=== PATIENT | male | born 1965 | race Caucasian/White ===

== ENCOUNTER 2022-11-07 20:20 | Emergency (ER) | payer BC, SELFPAY ==
[2022-11-07 20:33] VITALS: BP 166/84; PULSE 72; RESP 14; TEMP 36.7; O2SAT 98
--- NOTE | 2022-11-07 23:11 | ED.WOUNDLAC ---
HPI - Wound/Laceration General Chief Complaint: Wound/Laceration Stated Complaint: R leg lac Time Seen by Provider: 11/07/22 21:45 Source: patient Mode of arrival: ambulatory Limitations: no limitations History of Present Illness HPI narrative: Patient is a 56-year-old male who presents to the ED with report of a laceration to his right lower leg. Patient reports he was trying to open a glass jar in his pantry to get a granola bar out when the glass jar broke, and a piece of glass cut his right lower leg. Patient was unable to control bleeding at home which prompted his presentation. Denies any numbness or tingling. He has been ambulatory without issue. Denies significant pain. Tetanus up-to-date as of 2 years ago. Related Data Home Medications Medication Instructions Recorded Confirmed multivitamin 1 tablet PO DAILY 06/04/19 12/20/21 Allergies Allergy/AdvReac Type Severity Reaction Status Date / Time acetaminophen Allergy Intermediate HIVES Verified 12/20/21 13:00 propoxyphene Allergy Intermediate HIVES Verified 12/20/21 13:00 Review of Systems Review of Systems: CONSTITUTIONAL: Denies fever, chills, or sweats. SKIN: See HPI. MUSCULOSKELETAL: Denies back pain, joint pain, or myalgia. NEUROLOGIC: Denies tingling, numbness, or weakness. All systems reviewed & are unremarkable except as noted in HPI and below PMFSH Social History Social History Smoking status: Unknown if ever smoked Second hand tobacco smoke exposure: No Alcohol intake: current Drinks per week: 6 Exam Narrative: GENERAL: Well appearing, well-nourished, non-toxic, in no acute distress. HEAD: Normocephalic, atraumatic. NECK: Supple. No adenopathy, no masses. RESPIRATORY: Airway patent, respirations nonlabored. CARDIOVASCULAR: Regular rate and rhythm without murmurs, rubs, or gallops. Pedal pulses 2+ and equal bilaterally. MUSCULOSKELETAL: Moves all extremities. Strength/ROM intact without gross deformities. SKIN: Warm, dry, normal color. No rashes. 1.5 cm curvilinear flap laceration to right medial lower leg. Pinpoint area of active bleeding. No foreign body noted. NEURO: A&O X3. Speech clear. Cranial nerves II-XII grossly intact. Steady gait. No ataxic movements. PSYCHIATRIC: Appropriate mood and affect. Normal interaction. Course Vital Signs Vital signs: Vital Signs Temperature 98.0 F 11/07/22 20:33 Pulse Rate 72 11/07/22 20:33 Respiratory Rate 14 11/07/22 20:33 Blood Pressure 166/84 H 11/07/22 20:33 Pulse Oximetry 98 11/07/22 20:33 Temperature 98.0 F 11/07/22 20:33 Pulse Rate 72 11/07/22 20:33 Respiratory Rate 14 11/07/22 20:33 Blood Pressure 166/84 H 11/07/22 20:33 Pulse Oximetry 98 11/07/22 20:33 Procedures Laceration Laceration 1: Date: 11/07/22 Time: 23:00 Site: lower extremity Side (If applicable): right Size (cm): 1.5 Description: flap and clean Depth: simple, single layer Local Anesthetic: lidocaine 1% Amount of anesthesia used (mL): 3 Pre-repair: wound explored and irrigated ====== Skin Level ====== Skin layer closed with: nylon Size (cm): 4-0 Number of sutures: 3 Technique: simple, interrupted ====== Subcutaneous Layer ====== ====== Muscle Layer ====== ====== Tendon Layer ====== MDM - Wound/Laceration MDM Narrative Medical decision making narrative: Laceration repaired without complications. Tetanus already up-to-date. Patient given wound care instructions and reasons to return. Medical Records Attestation: I reviewed the patient's medical records. Discharge Plan Discharge Clinical Impression: Laceration of right lower leg Patient Disposition: Home, Self-Care Condition: Stable Instructions: Antibiotic Form, Care For Your Stitches (ED), Laceration (ED) Additional Instru
[2022-11-07] MEDS: LIDOCAINE HCL 1% LOCAL INJ 10 ML VIAL 5 ML INFILTRATE (23:14)
== END 2022-11-07 23:18 | disposition home or self-care (01) ==
PROVIDERS: Emergency Provider Physician Assistant
DX: S81.811A Laceration without foreign body, right lower leg, initial encounter (principal); W25.XXXA Contact with sharp glass, initial encounter
CPT/HCPCS: 12001; 99282

== ENCOUNTER 2023-08-28 08:12 | Outpatient (CLI) | payer OTHER, SELFPAY ==
--- NOTE | ~2023-08-28 | XR_ITS ---
EXAMINATION: XR cervical spine 4-5V DATE: 08/28/2023 08:39 INDICATION: Cervical radiculopathy. Right neck and shoulder pain. TECHNIQUE: 5 views of cervical spine including flexion and extension views were obtained. COMPARISON: None. FINDINGS: There is hypolordosis of cervical spine. There is no abnormal motion on flexion or extensio n. Vertebral body heights are normal. There is moderately decreased disc height at C5-C6. There is mu ltilevel mild facet joint osteoarthritis. There is mild central canal stenosis at C5-C6. No preverteb ral soft tissue swelling. IMPRESSION: 1. Moderate spondylosis at C5-C6. Reviewed, dictated and finalized at location E.
--- NOTE | ~2023-08-28 | XR_ITS ---
EXAMINATION: XR knee RT 3V DATE: 08/28/2023 08:39 INDICATION: Right knee pain. TECHNIQUE: 3 views of right knee including standing views were obtained. COMPARISON: None. FINDINGS: Bone alignment is normal. No fracture. There is mild tricompartmental osteoarthritis. There is a small knee joint effusion. IMPRESSION: 1. Mild right knee osteoarthritis. 2. Small right knee joint effusion. Reviewed, dictated and finalized at location E.
== END 2023-08-28 08:13 ==
PROVIDERS: PCP Internal Medicine; Visit Provider Internal Medicine
DX: M43.02 Spondylolysis, cervical region (principal); M17.11 Unilateral primary osteoarthritis, right knee; M25.461 Effusion, right knee
CPT/HCPCS: 72050; 73562

== ENCOUNTER 2023-12-21 15:30 | Outpatient (RCR) | payer OTHER, SELFPAY ==
--- NOTE | 2023-10-19 13:32 | OPREHPOC ---
Outpatient Therapy Plan of Care This is a Multidisciplinary Plan of Care that may contain components documented by all disciplines (PT, OT, and ST.) PT Problem 1 PT Problem #1 Knowledge Deficit PT Goal 1 Goal *indep with HEP *demonstrate correct posture with exercises * pt voice correct work station set up and positioning Target Visit 8 PT Problem 2 PT Problem #2 Pain PT Goal 1 Goal 1* pt report pain rating at 1/10 at worst 2* pt self assessment with Neck Disability Index rating of 8% limitation in activity level PT Problem 3 PT Problem #3 Impaired Strength PT Goal 1 Goal increase cervical-thoracic- scapular strength to improve posture and stability: 1* pt perform R and L prone scapular retraction with UE overhead x 20 reps with good stability 2* pt perform R shoulder flexion, with 5# hand weight to 90' without any report of weakness of shoulder 3* pt maintain good posture/stability with exercises Target Visit 8
--- NOTE | 2023-10-19 13:32 | PTOPEVAL1 ---
Assessment and note entered by Janell Gomez, PT Evaluation Information Assessment Status Evaluation ICD-10 Condition Codes (PT) M54.13 Onset Dec 2022 Subjective Information gradual increase in pain last fall; no injury or trauma to neck or shoulders; R hand dominant; Activity: able to do all home and work tasks-- computer work, with some pain increase; sometimes sit for 2 hours at time; does not do any regular fitness exercise, but does some walking; Reported Pain Level Pain Score Self Report Additional Pain Score Comments pain range in the past week: 2-3/10; ache, pinching feeling on R side; most pain R side-- neck and upper traps; never goes away; no radicular pain into shoulder or UE; increase pain: not able to identify any activity decreased pain: stretch neck/shoulder, rub neck; sleeping OK, no pain meds; problems with reaching out with R arm to leaf size picker something heavy Assessment PT Clinical Summary Kenny has the diagnosis of cervical radiculopathy. Gradual increase in pain without any trauma. Xray report states multilevel mild facet joint OA and decreased disc height at C 5-6. He is able to perform all of his work and home tasks with increase pain. Self rating of Neck Disability Index of 14% limitation in activity. With the evaluation: he has rounded shoulder position with winging of scapula R >L, with weakness over scapular-thoracic area; minimal muscle tightness over upper cervical area; with cervical rotation R and L reports neck tightness and stiffness. Skilled PT services are indicated for modalities to decrease pain and sapsms, therapeutic exercises to stretch and strengthen cervical-thoracic- scapular complex, to improve posture and education for HEP and posture correction. Plan of Care Interventions Electrical Stimulation,Hot Pack/Cold Pack,Manual Therapy,Mechanical Traction,Neuro Re-education, Patient Education,Therapeutic Activities, Therapeutic Exercise,Ultrasound,Other Other Interventions CHRIS castillo
--- NOTE | 2023-12-21 16:05 | PTOPDC ---
Assessment and note entered by Janell Gomez, PT Discharge Report Assessment Status Discharge ICD-10 Condition Codes (PT) M54.13 Onset Dec 2022 Subjective Information doing good; ready to be finished with therapy; have stiffness in neck but no pain; heat and the exercises take care of the pain; doing everything at home and work without any troubles; doing the exercises at home with blue theraband Reported Pain Level Pain Score Self Report Additional Pain Score Comments not had any pain in the past week; Assessment PT Clinical Summary Kenny has received 8 PT sessions. Compared to the initial evaluation: now does not have any pain; Neck Disability Index self rating from 14% to 0% limitation in activity level; increase strength of cervical thoracic musculature indep with HEP and has good posture awareness with exercises and computer set up. The goals were achieved. Discharge PT services. He is to continue with the HEP and monitor posture. Plan of Care PT Services Indicated No
== END 2023-12-22 09:35 | disposition home or self-care (01) ==
LOC: ANHPT 15:30
PROVIDERS: PCP Internal Medicine; Visit Provider Internal Medicine
DX: M54.12 Radiculopathy, cervical region (principal)
CPT/HCPCS: 97110; 97140; 97161; 97530

== ENCOUNTER 2025-01-22 20:05 | Inpatient (IN) | payer OTHER, SELFPAY ==
[2025-01-22] VITALS (19 sets, daily range): BP systolic 124–148; BP diastolic 69–85; PULSE 80–89; RESP 18–25; TEMP 36.3; O2SAT 97–100
--- NOTE | ~2025-01-22 | CT_ITS ---
EXAM/PROCEDURE: CT abdomen pelvis w con HISTORY: Follow up drainage of pelvic abscess. COMPARISON: January 23 TECHNIQUE: IV contrast enhanced CT of abdomen and pelvis FINDINGS: Percutaneous pigtail catheter extends through the midline in the suprapubic region into fluid accumulation/abscess seen on the January 23 procedure. No pneumoperitoneum is seen in this area or throughout the abdomen/pelvis; there is a small hiatal hernia and a 2 x 1.8 x 1.1 cm gaseous accumulation along the left anterolateral margin of the hiatal hernia is noted. Small amount of residual fluid is present in the area of the abscess drain. No other abscess seen. Several loops of adjacent small bowel have mild wall thickening. No pneumatosis seen. Some of the loops of small bowel are borderline distended in the left upper quadrant image 52 series 3. 2 cm peripherally enhancing lesion along the posterior dome of the liver image 35 series 3 has interrupted peripheral enhancement probably representing a small hemangioma. The remainder of the liver adrenal glands kidneys spleen pancreas and stomach unremarkable. Lung bases clear. Heart size normal. Coronary calcifications. Diffuse degenerative changes throughout the bones. Tiny fat-containing umbilical hernia. Urinary bladder is nondistended but appears grossly normal. Prostate size normal. No AAA, hydroureteronephrosis or grossly inflamed appendix. Gallbladder appears within normal limits. Small hydroceles also incidentally noted along with small fat-containing inguinal hernias. IMPRESSION: 1. Percutaneous pigtail catheter in the mid pelvis with small amount of residual fluid; no new abscess seen. Small bowel findings likely associated with inflammatory/infectious process. 2. 2 cm air accumulation along the left anterolateral margin of small hiatal hernia does not appear to represent pneumoperitoneum and may represent small distal esophageal diverticulum. Reviewed, dictated and finalized at location A. ICE CONTROL OPERATOR IMPRESSION: 1. Percutaneous pigtail catheter in the mid pelvis with small amount of residua l fluid; no new abscess seen. Small bowel findings likely associated with infla mmatory/infectious process. 2. 2 cm air accumulation along the left anterolateral margin of small hiatal he rnia does not appear to represent pneumoperitoneum and may represent small dist al esophageal diverticulum.
--- NOTE | ~2025-01-22 | CT_ITS ---
EXAMINATION: CT guide absc cath placement DATE: 01/23/2025 12:13 INDICATION: Perforated diverticulitis with abscess TECHNIQUE: The procedure including the risks and benefits was discussed with the patient. Risks discussed included bleeding and infection. The patient understood the risks and benefits and agreed to proceed. The patient was confirmed to be receiving appropriate antibiotic coverage. The skin overlying the abdomen was prepped and draped in usual sterile fashion. Anesthetic was administered with 1% lidocaine subcutaneously. Utilizing CT guidance an 18-gauge trochar needle was inserted into the peritoneal fluid collection. The inner stylette was removed and a J-wire advanced into the fluid collection with position confirmed by CT. Needle was removed and utilizing Seldinger technique the tract was se rially dilated over the wire to 10Fr. A 10 Fr pigtail catheter was then placed and the loop formed and locked with position confirmed by CT. The catheter was stitched to the skin with suture. Antibiotic ointment and a sterile dressing were applied. An additional adhesive fixation device was applied. The catheter was then attached to suction drainage and was draining additional fluid at the conclusion of the procedure. The dose-length product was 149.33 mGy-cm. FINDINGS: CT images demonstrate the catheter within the anterior pelvic intraperitoneal fluid collection. 25 mL of opaque fowl smelling and purulent appearing demarco-colored fluid was aspirated for testing. IMPRESSION: 1. Successful CT-guided pelvic abscess drainage. 2. 25 mL fluid was sent for aerobic and anaerobic cultures. 3. The catheter will be managed by Dr. Vargas. Reviewed, dictated and finalized at location A. TY EQUIPMENT TESTING SPECIALIST
--- OUTSIDE RECORDS SUMMARY | 2025-01-22 20:07 | XMS_ITS | Data Portability ---
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 Not available 07/07/2022 15:48:48 08/10/2022 08/10/2022 Recommends healthy nutrition, including a diet rich in fruits and vegetables, minimizing simple carbohydrates, salt, and saturated fats. Encouraged regular cardiovascular exercise such as walking at least 30 minutes daily, 5 times per week. -- transferred care from Dr Candy Silva [facility] Not available 08/10/2022 18:53:27 08/24/2023 08/24/2023 Recommends healthy nutrition, including a diet rich in fruits and vegetables, minimizing simple carbohydrates, salt, and saturated fats. Encouraged regular cardiovascular exercise such as walking at least 30 minutes daily, 5 times per week. -- transferred care from Dr Candy Silva [facility] Not available 08/24/2023 10:51:49 02/22/2024 02/22/2024 Recommends healthy nutrition, including a diet rich in fruits and vegetables, minimizing simple carbohydrates, salt, and saturated fats. Encouraged regular cardiovascular exercise such as walking at least 30 minutes daily, 5 times per week. -- [facility] Not available 02/22/2024 12:29:09 09/06/2024 09/06/2024 Recommends healthy nutrition, including a diet rich in fruits and vegetables, minimizing simple carbohydrates, salt, and saturated fats. Encouraged regular cardiovascular exercise such as walking at least 30 minutes daily, 5 times per week. [email or web address] Not available 09/06/2024 10:23:25 Plan of Treatment Reminders Order Date Submit Date Provider Last Modified By Organization Details Last Modified Time Details Appointments ESTABLISH ED PATIENT 15 2025 08:30A M Gabino Melvin MD Not available Not available Not available Lab HbA1c (hemoglob in A1c), blood 2024 025 DION Steele, [address], [place], [address], 09/21/2024 03:35:52 PSA, total, serum or plasma [address] [facility] Cedric, [address], [place], [address], 09/06/2024 10:37:22 PSA, total, serum or plasma 2023 025 DION Steele, [address], [place], [address], 08/27/2024 03:04:58 microalbu min/creat inine, mass ratio, urine 2023 025 DION Steele, [address], [place], [address], 08/27/2024 03:04:58 lipid panel, serum 2023 025 DION Steele, [address], [place], [address], 08/27/2024 03:04:57 CMP, serum or plasma 2023 025 DION Steele [address], [place], [address], 08/27/2024 03:04:58 lipid panel, serum 2023 024 DION Steele [address], [place], [address], 02/03/2024 08:37:36 CMP, serum or plasma 2023 024 [facility], [address], [place], [address], 02/03/2024 08:37:35 PSA, total, serum or plasma 2023 024 [facility], [address], [place], [address], 08/29/2023 12:37:01 microalbu min/creat inine, mass ratio, urine 2023 024 [facility], [address], [place], [address], 02/03/2024 08:37:37 microalbu min/creat inine, mass ratio, urine 2022 023 [facility], [address], [place], [address], 08/15/2022 07:42:19 HbA1c (hemoglob in A1c), blood 2022 023 [facility], [address], [place], [address], 08/15/2022 07:42:19 Hepatitis C IgG Ab, qual, serum 2022 023 [facility], [address], [place], [address], 08/15/2022 07:42:20 HIV 1 + 2, meaningfu l use set 2022 023 [facility], [address], [place], [address], 08/15/2022 07:42:20 Referral dermatolo gist referral - -- for alexandroune f/u [facility], [address], [address], [place], [address], 09/06/2024 10:58:39 physical therapist referral - -- evaluate for possible injury to long thoracic nerve vs dorsal scapular nerve, vs spinal accessory nerve. Thanks. 2023 [facility] ([facility]), [address], [place], [address], 10/19/2023 19:25:31 Procedures None recorded. Surgeries None recorded. Imaging XR, cervical spine 2023 [facility], [address], [place], [address], 08/28/2023 13:39:07 XR, knee, 3 view 2023 024 [facility], [address], [place], [address], 08/31/2023 08:36:52 Medication Orders rosuvasta tin 5 mg tablet 2024 025 [email or web address], [address] [place] [address], [id number], 09/06/2024 10:37:25 amlodipin e 5 mg tablet 2024 025 [email or web address], [address] [place] [address], [place], [address], 09/06/2024 10:37:27 candesart an 32 mg tablet 2024 025 [email or web address], [address] [place] [address], [address], 09/06/2024 10:37:25 amlodipin e 5 mg tablet 2023 024 [email or web address], [address] [place] [address], [id number], 02/22/2024 12:32:29 candesart an 32 mg tablet 2023 [facility], [address] [place] [address], [id number], 02/22/2024 12:32:27 rosuvasta tin 5 mg tablet 2023 [facility], [address] [place] [address], [address], 02/22/2024 12:32:27 Medrol (Eliazar) 4 mg tablets in a dose pack 2023 [email or web address], [address] [place] [address], [id number], 02/22/2024 12:21:56 Patient TargetsNo targets recorded. Patient Instructions Encounter Date Encounter Id Patient Instructions Last Modified By Organization Details Last Modified Time 07/07/2022 [id number] advised to lose weight Not available 07/07/2022 15:48:46 08/10/2022 [id number] advised to lose weight Not available 08/10/2022 19:09:21 Discussed and explained advance directives such as standard forms to the . Face to face discussion lasted for a duration of ___ minutes. Not available 08/10/2022 18:45:41 08/24/2023 [id number] advised to lose weight Not available 08/24/2023 11:02:17 Discussed and explained advance directives such as standard forms to the . Face to face discussion lasted for a duration of ___ minutes. [email or web address] Not available 08/24/2023 09:53:23 02/22/2024 [id number] advised to lose weight Not available 02/22/2024 12:32:24 09/06/2024 [id number] advised to lose weight Not available 09/06/2024 10:37:22 Reason for Referral Physical Therapist Referral for Cervical radiculopathy -- evaluate for possible injury to long thoracic nerve vs dorsal scapular nerve, vs spinal accessory nerve. Thanks. Referring Physician: Gabino Melvin, Internal Medicine, Encounter Date: 08/24/2023 Raw Mill Operator Referral for M elanocytic nevus of skin -- for routiune f/u Referring Physician: Gabino Melvin, Internal Medicine, Encounter Date: 09/06/2024 Results Created Date Observation Date Name Description Value Unit Range Abnormal Flag Note LastModifiedBy Organization Detail LastModifiedTime 07/30/19 23 07/30/2022 ALBUM IN/CR EAT RATIO , RANDO M UR creatinine, urine 273.0 mg/dL not estab. Not Available [facility] ([facility]) [address] [place], [address], 07/30/2022 07:37:32 07/30/19 23 07/30/2022 ALBUM IN/CR EAT RATIO , RANDO M UR albumin, urine 6.0 ug/mL not estab. Not Available [facility] ([facility]) [address] [place], [address], 07/30/2022 07:37:32 07/30/19 23 07/30/2022 ALBUM IN/CR EAT RATIO , RANDO M UR alb/creat ratio 2 mg/g_ creat 0-29 Venita l: 0 - 29 Moder ately incre ased: 30 - 300 Sever aileen incre ased: >300 Not Available [facility] ([facility]) [address] [place], [address], 07/30/2022 07:37:32 07/30/19 23 07/30/2022 HEMOG LOBIN A1C hemoglobin A1C 5.9 % 4.8-5. 6 above high normal Predi abete s: 5.7 - 6.4 Diabe allison: >6.4 Glyce carlota contr ol for adult s with diabe allison: <7.0 Not Available [facility] ([facility]) [address] [place], [address], 07/30/2022 07:37:33 07/30/19 23 07/30/2022 HIV AB/P2 4 AG WITH REFLE X HIV Ab/P24 Ag screen Non Reacti ve non reacti ve HIV Negat rosie HIV-1 /HIV- 2 antib odies and HIV-1 p24 antig en were NOT detec clarice. There is no labor atory evide nce of HIV infec tion. Not Available [facility] ([facility]) [address] [facility], [place], [address], 07/30/2022 07:37:33 07/30/19 23 07/30/2022 HCV ANTIB JACKIE hep C virus Ab Non Reacti ve non reacti ve HCV antib jackie alone does not diffe renti ate betwe en previ ously resol guilherme infec tion and activ e infec tion. Equiv ocal and React rosie HCV antib jackie resul ts shoul d be follo wed up with an HCV RNA test to suppo rt the diagn osis of activ e HCV infec tion. Not Available [facility] ([facility]) [address] [facility], [place], [address], 07/30/2022 07:37:33 07/27/19 24 07/28/2023 COMP. METAB OLIC PANEL (14) glucose 92 mg/dL 70-99 Not Available [facility] ([facility]) [address] [place], [address], 07/28/2023 08:38:18 07/27/19 24 07/28/2023 COMP. METAB OLIC PANEL (14) BUN 17 mg/dL 6-24 Not Available [facility] ([facility]) [address] [place], [address], 07/28/2023 08:38:18 07/27/19 24 07/28/2023 COMP. METAB OLIC PANEL (14) creatinine 1.19 mg/dL 0.76-1 .27 Not Available [facility] ([facility]) [address] [place], [address], 07/28/2023 08:38:18 07/27/19 24 07/28/2023 COMP. METAB OLIC PANEL (14) eGFR 71 mL/mi n/1.7 3 >59 Not Available [facility] ([facility]) [address], [place], [address], 07/28/2023 08:38:18 07/27/19 24 07/28/2023 COMP. METAB OLIC PANEL (14) BUN/creatini ne ratio 14 9-20 Not Available [facility] ([facility]) [address], [place], [address], 07/28/2023 08:38:18 07/27/19 24 07/28/2023 COMP. METAB OLIC PANEL (14) sodium 137 mmol/ L 134-14 4 Not Available [facility] ([facility]) [address], [place], [address], 07/28/2023 08:38:18 07/27/19 24 07/28/2023 COMP. METAB OLIC PANEL (14) potassium 4.6 mmol/ L 3.5-5. 2 Not Available [facility] ([facility]) [address], [place], [address], 07/28/2023 08:38:18 07/27/19 24 07/28/2023 COMP. METAB OLIC PANEL (14) chloride 100 mmol/ L 96-106 Not Available [facility] ([facility]) [address], [place], [address], 07/28/2023 08:38:18 07/27/19 24 07/28/2023 COMP. METAB OLIC PANEL (14) carbon dioxide, total 25 mmol/ L 20-29 Not Available [facility] ([facility]) [address], [place], [address], 07/28/2023 08:38:18 07/27/19 24 07/28/2023 COMP. METAB OLIC PANEL (14) calcium 9.6 mg/dL 8.7-10 .2 Not Available [facility] ([facility]) [address] [facility] [place], [address], 07/28/2023 08:38:18 07/27/19 24 07/28/2023 COMP. METAB OLIC PANEL (14) protein, total 6.8 g/dL 6.0-8. 5 Not Available [facility] ([facility]) [address] [facility], [place], [address], 07/28/2023 08:38:18 07/27/19 24 07/28/2023 COMP. METAB OLIC PANEL (14) albumin 4.5 g/dL 3.8-4. 9 Not Available [facility] ([facility]) [address] [facility], [place], [address], 07/28/2023 08:38:18 07/27/19 24 07/28/2023 COMP. METAB OLIC PANEL (14) globulin, total 2.3 g/dL 1.5-4. 5 Not Available [facility] ([facility]) [address] [facility] [place], [address], 07/28/2023 08:38:18 07/27/19 24 07/28/2023 COMP. METAB OLIC PANEL (14) A/G ratio 2.0 1.2-2. 2 Not Available [facility] ([facility]) [address] [facility] [place], [address], 07/28/2023 08:38:18 07/27/19 24 07/28/2023 COMP. METAB OLIC PANEL (14) bilirubin, total 1.2 mg/dL 0.0-1. 2 Not Available [facility] ([facility]) [address] [facility] [place], [address], 07/28/2023 08:38:18 07/27/19 24 07/28/2023 COMP. METAB OLIC PANEL (14) alkaline phosphatase 41 IU/L 44-121 below low normal Not Available [facility] ([facility]) [address] [facility] [place], [address], 07/28/2023 08:38:18 07/27/19 24 07/28/2023 COMP. METAB OLIC PANEL (14) AST (SGOT) 29 IU/L 0-40 Not Available [facility] ([facility]) [address] [facility] [place], [address], 07/28/2023 08:38:18 07/27/19 24 07/28/2023 COMP. METAB OLIC PANEL (14) ALT (SGPT) 38 IU/L 0-44 Not Available [facility] ([facility]) [address] [facility] [place], [address], 07/28/2023 08:38:18 07/27/19 24 07/28/2023 LIPID PANEL cholesterol, total 160 mg/dL 100-19 9 Not Available [facility] ([facility]) [address] [facility] [place], [address], 07/28/2023 08:38:19 07/27/19 24 07/28/2023 LIPID PANEL triglyceride s 57 mg/dL 0-149 Not Available [facility] ([facility]) [address] [facility] [place], [address], 07/28/2023 08:38:19 07/27/19 24 07/28/2023 LIPID PANEL HDL cholesterol 65 mg/dL >39 Not Available [facility] ([facility]) [address] [facility] [place], [address], 07/28/2023 08:38:19 07/27/19 24 07/28/2023 LIPID PANEL VLDL cholesterol oleksandr 12 mg/dL 5-40 Not Available [facility] ([facility]) [address] [facility] [place], [address], 07/28/2023 08:38:19 07/27/19 24 07/28/2023 LIPID PANEL LDL chol calc ([facility]) 83 mg/dL 0-99 Not Available [facility] ([facility]) [address] [place], [address], 07/28/2023 08:38:19 07/27/19 24 07/28/2023 LIPID PANEL comment: SENIOR ENERGY MARKET COORDINATOR Not Available [facility] ([facility]) [address] [facility], [place], [address], 07/28/2023 08:38:19 07/27/19 24 07/28/2023 ALBUM IN/CR EAT RATIO , RANDO M UR creatinine, urine 241.5 mg/dL not estab. Not Available [facility] ([facility]) [address] [facility], [place], [address], 07/28/2023 08:38:20 07/27/19 24 07/28/2023 ALBUM IN/CR EAT RATIO , RANDO M UR albumin, urine 8.5 ug/mL not estab. Not Available [facility] ([facility]) [address] [place], [address], 07/28/2023 08:38:20 07/27/19 24 07/28/2023 ALBUM IN/CR EAT RATIO , RANDO M UR alb/creat ratio 4 mg/g_ creat 0-29 Venita l: 0 - 29 Moder ately incre ased: 30 - 300 Sever aileen incre ased: >300 Not Available [facility] ([facility]) [address] [facility], [place], [address], 07/28/2023 08:38:20 07/27/19 24 07/28/2023 HEMOG LOBIN A1C hemoglobin A1C 5.8 % 4.8-5. 6 above high normal Predi abete s: 5.7 - 6.4 Diabe allison: >6.4 Glyce carlota contr ol for adult s with diabe allison: <7.0 Not Available [facility] ([facility]) [address] [place], [address], 07/28/2023 08:38:21 08/28/19 24 08/29/2023 PROST ATE-S PECIF IC AG prostate specific Ag 1.6 NG/mL 0.0-4. 0 Jil ECLIA metho dolog y. Accor ding to the Ameri can [employer]o g[employer] iatio n, Serum PSA shoul d decre ase and remai n at undet ectab le level s after radic al prost atect jhonatan. The AUA defin es bioch emica l recur rence as an initi al PSA value 0.2 ng/mL or great er follo wed by a subse quent confi rmato ry PSA value 0.2 ng/mL or great er. Value s obtai theo with diffe rent assay metho ds or kits canno t be used inter sanford eably . Resul ts canno t be inter prete d as absol mi'kmaq evide nce of the prese nce or absen ce of michell harrell se. Not Available [facility] ([facility]) [address] [facility], [place], [address], 08/29/2023 12:37:01 02/02/20 24 02/03/2024 COMP. METAB OLIC PANEL (14) glucose 94 mg/dL 70-99 normal Not Available [facility] ([facility]) [address] [place], [address], 02/03/2024 08:37:35 02/02/20 24 02/03/2024 COMP. METAB OLIC PANEL (14) BUN 13 mg/dL 6-24 normal Not Available [facility] ([facility]) [address] [place], [address], 02/03/2024 08:37:35 02/02/20 24 02/03/2024 COMP. METAB OLIC PANEL (14) creatinine 1.10 mg/dL 0.76-1 .27 normal Not Available [facility] ([facility]) [address] [place], [address], 02/03/2024 08:37:35 02/02/20 24 02/03/2024 COMP. METAB OLIC PANEL (14) eGFR 78 mL/mi n/1.7 3 >59 normal Not Available [facility] ([facility]) [address] [facility], [place], [address], 02/03/2024 08:37:35 02/02/20 24 02/03/2024 COMP. METAB OLIC PANEL (14) BUN/creatini ne ratio 12 9-20 normal Not Available [facility] ([facility]) [address] [facility], [place], [address], 02/03/2024 08:37:35 02/02/20 24 02/03/2024 COMP. METAB OLIC PANEL (14) sodium 140 mmol/ L 134-14 4 normal Not Available [facility] ([facility]) [address] [facility], [place], [address], 02/03/2024 08:37:35 02/02/20 24 02/03/2024 COMP. METAB OLIC PANEL (14) potassium 4.4 mmol/ L 3.5-5. 2 normal Not Available [facility] ([facility]) [address] [facility], [place], [address], 02/03/2024 08:37:35 02/02/20 24 02/03/2024 COMP. METAB OLIC PANEL (14) chloride 103 mmol/ L 96-106 normal Not Available [facility] ([facility]) [address] [facility], [place], [address], 02/03/2024 08:37:35 02/02/20 24 02/03/2024 COMP. METAB OLIC PANEL (14) carbon dioxide, total 25 mmol/ L 20-29 normal Not Available [facility] ([facility]) [address] [facility], [place], [address], 02/03/2024 08:37:35 02/02/20 24 02/03/2024 COMP. METAB OLIC PANEL (14) calcium 9.3 mg/dL 8.7-10 .2 normal Not Available [facility] ([facility]) [address] [facility] [place], [address], 02/03/2024 08:37:35 02/02/20 24 02/03/2024 COMP. METAB OLIC PANEL (14) protein, total 6.8 g/dL 6.0-8. 5 normal Not Available [facility] ([facility]) [address] [facility] [place], [address], 02/03/2024 08:37:35 02/02/20 24 02/03/2024 COMP. METAB OLIC PANEL (14) albumin 4.4 g/dL 3.8-4. 9 normal Not Available [facility] ([facility]) [address] [facility], [address], 02/03/2024 08:37:35 02/02/20 24 02/03/2024 COMP. METAB OLIC PANEL (14) globulin, total 2.4 g/dL 1.5-4. 5 Not Available [facility] ([facility]) [address] [facility] [place], [address], 02/03/2024 08:37:35 02/02/20 24 02/03/2024 COMP. METAB OLIC PANEL (14) bilirubin, total 1.2 mg/dL 0.0-1. 2 normal Not Available [facility] ([facility]) [address] [facility] [place], [address], 02/03/2024 08:37:35 02/02/20 24 02/03/2024 COMP. METAB OLIC PANEL (14) alkaline phosphatase 40 IU/L 44-121 below low normal Not Available [facility] ([facility]) [address] [facility] [place], [address], 02/03/2024 08:37:35 02/02/20 24 02/03/2024 COMP. METAB OLIC PANEL (14) AST (SGOT) 23 IU/L 0-40 normal Not Available [facility] ([facility]) [address] [facility], [address], 02/03/2024 08:37:35 02/02/20 24 02/03/2024 COMP. METAB OLIC PANEL (14) ALT (SGPT) 31 IU/L 0-44 normal Not Available [facility] ([facility]) [address] [facility], [place], [address], 02/03/2024 08:37:35 02/02/20 24 02/03/2024 LIPID PANEL cholesterol, total 149 mg/dL 100-19 9 normal Not Available [facility] ([facility]) [address] [place], [address], 02/03/2024 08:37:36 02/02/20 24 02/03/2024 LIPID PANEL triglyceride s 49 mg/dL 0-149 normal Not Available [facility] ([facility]) [address] [place], [address], 02/03/2024 08:37:36 02/02/20 24 02/03/2024 LIPID PANEL HDL cholesterol 58 mg/dL >39 normal Not Available [facility] ([facility]) [address] [place], [address], 02/03/2024 08:37:36 02/02/20 24 02/03/2024 LIPID PANEL VLDL cholesterol oleksandr 11 mg/dL 5-40 Not Available [facility] ([facility]) [address] [place], [address], 02/03/2024 08:37:36 02/02/20 24 02/03/2024 LIPID PANEL LDL chol calc ([facility]) 80 mg/dL 0-99 Not Available [facility] ([facility]) [address] [place], [address], 02/03/2024 08:37:36 02/02/20 24 02/03/2024 LIPID PANEL LDL calc comment: SENIOR ENERGY MARKET COORDINATOR Not Available [facility] ([facility]) [address] [place], [address], 02/03/2024 08:37:36 02/02/20 24 02/03/2024 ALBUM IN/CR EAT RATIO , RANDO M UR creatinine, urine 13.8 mg/dL not estab. normal Not Available [facility] ([facility]) [address] [place], [address], 02/03/2024 08:37:37 02/02/2002/03/2024 ALBUM IN/CR EAT RATIO , RANDO M UR albumin, urine <3.0 ug/mL not estab. Not Available [facility] ([facility]) [address] [place], [address], 02/03/2024 08:37:37 02/02/20 24 02/03/2024 ALBUM IN/CR EAT RATIO , RANDO M UR alb/creat ratio <22 mg/g_ creat 0-29 Venita l: 0 - 29 Moder ately incre ased: 30 - 300 Sever aileen incre ased: >300 Not Available [facility] ([facility]) [address] [place], [address], 02/03/2024 08:37:37 08/23/1908/23/2024 COMP. METAB OLIC PANEL (14) glucose 107 mg/dL 70-99 above high normal Not Available [facility] ([facility]) [address] [place], [address], 08/23/2024 04:36:14 08/23/19 25 08/23/2024 COMP. METAB OLIC PANEL (14) BUN 17 mg/dL 6-24 normal Not Available [facility] ([facility]) [address] [place], [address], 08/23/2024 04:36:14 06/12/20 25 08/23/2024 COMP. METAB OLIC PANEL (14) creatinine 1.16 mg/dL 0.76-1 .27 normal Not Available [facility] ([facility]) [address] [facility], [place], [address], 08/23/2024 04:36:14 08/23/19 25 08/23/2024 COMP. METAB OLIC PANEL (14) eGFR 73 mL/mi n/1.7 3 >59 normal Not Available [facility] ([facility]) [address] [facility], [place], [address], 08/23/2024 04:36:14 08/23/19 25 08/23/2024 COMP. METAB OLIC PANEL (14) BUN/creatini ne ratio 15 9-20 normal Not Available [facility] ([facility]) [address] [facility], [place], [address], 08/23/2024 04:36:14 08/23/19 25 08/23/2024 COMP. METAB OLIC PANEL (14) sodium 137 mmol/ L 134-14 4 normal Not Available [facility] ([facility]) [address] [facility] [place], [address], 08/23/2024 04:36:14 08/23/19 25 08/23/2024 COMP. METAB OLIC PANEL (14) potassium 4.6 mmol/ L 3.5-5. 2 normal Not Available [facility] ([facility]) [address] [facility], [place], [address], 08/23/2024 04:36:14 08/23/19 25 08/23/2024 COMP. METAB OLIC PANEL (14) chloride 101 mmol/ L 96-106 normal Not Available [facility] ([facility]) [address] [facility], [place], [address], 08/23/2024 04:36:14 08/23/19 25 08/23/2024 COMP. METAB OLIC PANEL (14) carbon dioxide, total 22 mmol/ L 20-29 normal Not Available [facility] ([facility]) [address] [facility] [place], [address], 08/23/2024 04:36:14 08/23/19 25 08/23/2024 COMP. METAB OLIC PANEL (14) calcium 9.5 mg/dL 8.7-10 .2 normal Not Available [facility] ([facility]) [address] [facility], [address], 08/23/2024 04:36:14 08/23/19 25 08/23/2024 COMP. METAB OLIC PANEL (14) protein, total 6.7 g/dL 6.0-8. 5 normal Not Available [facility] ([facility]) [address] [place], [address], 08/23/2024 04:36:14 08/23/19 25 08/23/2024 COMP. METAB OLIC PANEL (14) albumin 4.3 g/dL 3.8-4. 9 normal Not Available [facility] ([facility]) [address] [facility], [address], 08/23/2024 04:36:14 08/23/19 25 08/23/2024 COMP. METAB OLIC PANEL (14) globulin, total 2.4 g/dL 1.5-4. 5 Not Available [facility] ([facility]) [address] [facility], [address], 08/23/2024 04:36:14 08/23/19 25 08/23/2024 COMP. METAB OLIC PANEL (14) bilirubin, total 1.1 mg/dL 0.0-1. 2 normal Not Available [facility] ([facility]) [address] [facility], [address], 08/23/2024 04:36:14 08/23/19 25 08/23/2024 COMP. METAB OLIC PANEL (14) alkaline phosphatase 42 IU/L 44-121 below low normal Not Available [facility] [facility] [address] [facility] [place], [address], 08/23/2024 04:36:14 08/23/19 25 08/23/2024 COMP. METAB OLIC PANEL (14) AST (SGOT) 23 IU/L 0-40 normal Not Available [facility] ([facility]) [address] [place], [address], 08/23/2024 04:36:14 08/23/19 25 08/23/2024 COMP. METAB OLIC PANEL (14) ALT (SGPT) 28 IU/L 0-44 normal Not Available [facility] ([facility]) [address] [place], [address], 08/23/2024 04:36:14 08/23/19 25 08/23/2024 LIPID PANEL cholesterol, total 157 mg/dL 100-19 9 normal Not Available [facility] ([facility]) [address] [place], [address], 08/23/2024 04:36:14 08/23/19 25 08/23/2024 LIPID PANEL triglyceride s 48 mg/dL 0-149 normal Not Available [facility] ([facility]) [address] [place], [address], 08/23/2024 04:36:14 08/23/19 25 08/23/2024 LIPID PANEL HDL cholesterol 66 mg/dL >39 normal Not Available [facility] ([facility]) [address] [place], [address], 08/23/2024 04:36:14 08/23/19 25 08/23/2024 LIPID PANEL VLDL cholesterol oleksandr 10 mg/dL 5-40 Not Available [facility] ([facility]) [address] [place], [address], 08/23/2024 04:36:14 08/23/19 25 08/23/2024 LIPID PANEL LDL chol calc ([facility]) 81 mg/dL 0-99 Not Available [facility] ([facility]) [address] [facility], [place], [address], 08/23/2024 04:36:14 08/23/19 25 08/23/2024 LIPID PANEL LDL calc comment: SENIOR ENERGY MARKET COORDINATOR Not Available [facility] ([facility]) [address] [facility], [place], [address], 08/23/2024 04:36:14 08/23/19 25 08/23/2024 ALBUM IN/CR EAT RATIO , RANDO M UR creatinine, urine 242.9 mg/dL not estab. normal Not Available [facility] ([facility]) [address] [place], [address], 08/23/2024 04:36:15 08/23/19 25 08/23/2024 ALBUM IN/CR EAT RATIO , RANDO M UR albumin, urine 3.3 ug/mL not estab. Not Available [facility] ([facility]) [address] [place], [address], 08/23/2024 04:36:15 08/23/19 25 08/23/2024 ALBUM IN/CR EAT RATIO , RANDO M UR alb/creat ratio 1 mg/g_ creat 0-29 Venita l: 0 - 29 Moder ately incre ased: 30 - 300 Sever aileen incre ased: >300 Not Available [facility] ([facility]) [address] [place], [address], 08/23/2024 04:36:15 08/23/19 25 08/23/2024 PROST ATE-S PECIF IC AG prostate specific Ag 2.0 NG/mL 0.0-4. 0 normal Jil ECLIA metho dolog y. Accor ding to the Ameri can Urolo gical Assoc iatio n, Serum PSA shoul d decre ase and remai n at undet ectab le level s after radic al prost atect jhonatan. The AUA defin es bioch emica l recur rence as an initi al PSA value 0.2 ng/mL or great er follo wed by a subse quent confi rmato ry PSA value 0.2 ng/mL or great er. Value s obtai theo with diffe rent assay metho ds or kits canno t be used inter sanford eably . Resul ts canno t be inter prete d as absol mi'kmaq evide nce of the prese nce or absen ce of michell harrell se. Not Available [facility] ([facility]) [address] [facility], [place], [address], 08/23/2024 04:36:15 09/21/19 25 09/20/2024 HEMOG LOBIN A1C hemoglobin A1C 5.6 % 4.8-5. 6 normal Predi abete s: 5.7 - 6.4 Diabe allison: >6.4 Glyce carlota contr ol for adult s with diabe allison: <7.0 Not Available [facility] ([facility]) [address] [facility], [place], [address], 09/21/2024 03:35:52 08/28/19 24 08/28/2023 XR, cervi oleksandr spine No observ ation record ed. [address], [place], [address], 09/04/2023 07:46:07 Result Notes None recorded. Problems Name Problem SNOMED Code Status Onset Date Resolution Date Notes Provider Name and Address Organization Details Recorded Time Essential hypertension 42634588 Active 2022 Gabino Melvin MD [address], [place], [address] , [facility] 3 15:16:11 Hyperlipidemia 34577767 Active 2022 MD Veronika Crespo[address] [facility] [address], [place], [address] , [facility] 3 15:16:17 Problem Notes None recorded. Procedures Surgical History Date Name Laterality Status Provider Name and Address Organization Details Recorded Time tonsillectomy completed [facility] 07/07/2022 14:26:57 Imaging Results None recorded. Procedure Notes None recorded. Medical Equipment None Reported. Allergies Allergen ID Allergen Name Allergen Category Reaction Reaction Severity Criticality Documentation Date Start Date Code Code System Note Provider Name and Address Organization Details Recorded Time 19795 Darvocet- N medicatio n Not available Not available Not available [facility]07[facility]22 [facility] 14:[facility]18 Medications Name Sig Start Date Stop Date Status Note LastModified by Organization Details LastModified Time Medrol (Eliazar) 4 mg tablets in a dose pack ud 02/21 completed Not Available Not Available Not Available amlodipine 5 mg tablet Take 1 tablet every day by oral route for 90 days. 2024 active Not Available Not Available Not Avai lable tazarotene 0.1 % topical gel APPLY THIN LAYER TOPICALLY TO FACE EVERY NIGHT AT BEDTIME active Not Available Not Available No t Available candesartan 32 mg tablet Take 1 tablet every day by oral route. 2024 active Not Available Not Available Not Avai lable rosuvastati n 5 mg tablet Take 1 tablet every day by oral route. 2024 active Not Available Not Available Not Avai lable multivitami n active Not Available Not Available Not Available Vitals Date Recorded Body weight Body mass index (BMI) Body height Respiratory rate Body temperature Heart rate Systolic And Diastolic Provider Name and Address Organization Details Last Updated DateTime 3 72831.8 1 g 28.5 kg/m2 170.18 cm 16 /min 97 [degF] 58 /min 133/84 mm[Hg] [facility] 3 14:45:18 Date Recorded Body height Body mass index (BMI) Body weight Respiratory rate Body temperature Heart rate Systolic And Diastolic Provider Name and Address Organization Details Last Updated DateTime 3 170.18 cm 28 kg/m2 35937.0 3 g 16 /min 97.4 [degF] 56 /min 122/81 mm[Hg] [facility] 3 17:39:30 Date Recorded Heart rate Respiratory rate Body temperature Body height Body mass index (BMI) Body weight Systolic And Diastolic Provider Name and Address Organization Details Last Updated DateTime 4 63 /min 16 /min 97.6 [degF] 170.18 cm 28.3 kg/m2 92418.2 2 g 121/81 mm[Hg] Aure Graves [facility] 4 09:53:35 Date Recorded Body height Heart rate Respiratory rate Body temperature Body mass index (BMI) Body weight Systolic And Diastolic Provider Name and Address Organization Details Last Updated DateTime 5 170.18 cm 62 /min 16 /min 97.7 [degF] 28.2 kg/m2 00906.6 3 g 130/81 mm[Hg] Aure Graves [facility] 5 09:18:52 Date Recorded Body height Heart rate Respiratory rate Body temperature Body mass index (BMI) Body weight Systolic And Diastolic Provider Name and Address Organization Details Last Updated DateTime 4 170.18 cm 54 /min 16 /min 97.6 [degF] 28 kg/m2 32965.0 3 g 130/83 mm[Hg] Aure Graves [facility] 4 11:42:17 Social History Question Answer Notes LastModified by Organizat ion Details LastModified Time Tobacco Smoking Status Never Smoker Aure Graves [facility] 07/07/2022 14:46:53 Do You Have An Advance Directive? Yes Information not available 07/07/2022 How Many Years Have You Consumed Alcohol? 35 Information not available 07/07/2022 Do You Wear A Helmet When Biking? No Information not available 07/07/2022 Are You Blind Or Do You Have Difficulty Seeing? Yes Wears Contacts During Day And Glasses At Night Information not available 07/07/2022 Is Blood Transfusion Acceptable In An Emergency? Yes Information not available 07/07/2022 What Is Your Level Of Caffeine Consumption? Moderate Information not available 07/07/2022 What Type Of Logging Supervisor Do You Use? None Information not available 07/07/2022 What Is Your Code Status? Full Code Information not available 07/07/2022 In The 14 Days Before Symptom Onset, Have You Had Close Contact With A Laboratory-confir med COVID-19 While That Case Was Ill? No Information not available 07/07/2022 In The 14 Days Before Symptom Onset, Have You Had Close Contact With A Person Who Is Under Investigation For COVID-19 While That Person Was Ill? No Information not available 07/07/2022 Have You Been To An Area Known To Be High Risk For COVID-19? No Information not available 07/07/2022 Are You Deaf Or Do You Have Serious Difficulty Hearing? No Information not available 07/07/2022 What Type Of Diet Are You Following? REGULAR Information not available 07/07/2022 Have You Processed Blood Or Body Fluids From An Ebola Virus Disease Patient Without Appropriate PPE? No Information not available 07/07/2022 Do You Reside In Or Have You Traveled To An Area Where Ebola Virus Transmission Is Active? No Information not available 07/07/2022 What Is The Highest Grade Or Level Of School You Have Completed Or The Highest Degree You Have Received? [id number] Information not available 07/07/2022 Have There Been Any Changes To Your Family Or Social Situation? No Information no t available 07/07/2022 What Is The Fluoride Status Of Your Home? Unknown Information not available 07/07/2022 Are There Any Guns Present In Your Home? No Information not available 07/07/2022 Do You Use Insect Repellent Routinely? No Information not available 07/07/2022 What Was The Date Of Your Most Recent Tobacco Screening? 09/06/2024 Information not available 09/06/2024 How Many Children Do You Have? 3 Information not available 07/07/2022 Are There Any Occupational Health Risks Where You Work? No Information not available 07/07/2022 Do You Have Any Pets? No Information not available 07/07/2022 Do You Use Protection During Sex? No Information not available 07/07/2022 What Is Your Relationship Status? Information not available 07/07/2022 Do You Use Your Seat Belt Or Car Seat Routinely? Yes Information not available 07/07/2022 Are You Sexually Active? Yes Information not available 07/07/2022 Do You Have Smoke And Carbon Monoxide Detectors In Your Home? Yes Information not available 07/07/2022 Are You Passively Exposed To Smoke? No Information no t available 07/07/2022 What Types Of Sporting Activities Do You Participate In? No Information not available 07/07/2022 Do You Use Sunscreen Routinely? No Information not available 07/07/2022 Do You Have Difficulty Walking Or Climbing Stairs? No Information not available 07/07/2022 Sex: Unknown Functional Status Question Answer Note LastModified by Organization Details LastModified Time Do you use any illicit or recreational drugs? No Information not available 07/07/2022 Do you or have you ever used any other forms of tobacco or nicotine? No Information not available 07/07/2022 What is your level of alcohol consumption? Moderate -- 6 beers per week & occasional wine/mixed drink Information not available 07/07/2022 Are you currently employed? Yes Information not available 07/07/2022 Do you have transportation difficulties? No Information not available 07/07/2022 Do you have difficulty doing errands alone? No Information not available 07/07/2022 Are you able to care for yourself independently? 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 No Information not available 07/07/2022 What is your exercise level? Occasional -- walks 30 to 60 min 3 times a week Information not available 07/07/2022 Mental Status Question Answer Note LastModified by Organizat ion Details LastModified Time Do you feel stressed (tense, restless, nervous, or anxious, or unable to sleep at night)? [id number] Information not available 07/07/2022 Do you have difficulty concentrating, remembering or making decisions? No Information no t available 07/07/2022 Family History Nothing Reported Notes:-- pt is adopted Medical History Condition Response High Cholesterol Y Hypertension Y Immunizations Vaccine Type Date Status Note Provider Nam e and Address Organization Details Recorded Time [facility] 0 [facility] 14:20:07 MMR 3 completed Jennifer Yang null, [facility] 07/07/2022 14:20:23 Tdap 0 completed Jennifer Yang null, [facility] 07/07/2022 14:21:06 tetanus toxoid, unspecified formulation 2 completed [facility] 07[facility]07[facility]22 14:21:48 zoster recombinant 2 [facility] 07/07/2022 14:22:38 zoster recombinant 2 [facility]07[facility] 14:23:16 SARS-COV-2 (COVID-19) vaccine, UNSPECIFIED 1 completed MD aSmuel Crespo [address], [place], [address], [facility] 07/07/2022 15:34:19 SARS-COV-2 (COVID-19) vaccine, UNSPECIFIED 3 completed MD Samuel Crespo [address], [place], [address], [facility] 07/07/2022 15:36:24 SARS-COV-2 (COVID-19) vaccine, UNSPECIFIED 1 completed MD Samuel Crespo [address], [place], [address], [facility] 07/07/2022 15:35:56 Pneumococcal conjugate PCV20, polysaccharide UPI057 conjugate, adjuvant, PF 4 completed MD Samuel Crespo [address], [place], [address], [facility] 09/06/2024 10:13:46 Past Encounters Encounter ID Performer Location Encounter Start Date Encounter Closed Date Diagnosis/Indication Diagnosis SNOMED-CT Code Diagnosis ICD10 Code Diagnosis IMO Codes Diagnosis Note [id number] Gabino Melvin MD [employer] [address] [place] [address] [address] 07/07/2022 13:35:52 07/07/2022 15:57:25 Essential hypertension 20789057 I10 Hyperlipidemia 08988663 E78.5 (TC 151, TG 65, HDL 58, & LDL 80 -- on 06/17/22) -- Based on the current ASCVD risk calculatio n of 5.0% on 07/07/22 Body mass index 25-29 - overweight 871014699 Z68.28 -- advised weight-- pt's BMI today is Hepatitis C screening 41 0779987 Z11.59 HIV screening 233753414 Z11.4 Active or passive immunization 616668155 Z23 -- current Screening for malignant neoplasm of colon 179888670 Z12.11 -- gastroente rologist Dr Slava Gomez recommends repeating colonoscop y 10 years from 05/02/16 Screening for malignant neoplasm of prostate 764732080 Z12.5 -- PSA level of 1.2 (06/17/22) Diabetes m ellitus screening 810975162 Z13.1 [id number] Gabino Melvin MD [employer] [address] [place] [address] [address] 08/10/2022 16:21:16 08/10/2022 19:09:58 Adult health examination 066822866 Z00.00 Essential hypertension 97652934 I10 Hyperlipidemia 06534763 E78.5 (TC 151, TG 65, HDL 58, & LDL 80 -- on 06/17/22) -- Based on the current ASCVD risk calculatio n of 5.0% on 07/07/22 Body mass index 25-29 - overweight 066176618 Z68.28 -- advised weight; pt lost 3 # since his last visit-- pt's BMI today is 28 (ideal is between 20-25) Diabetes m ellitus screening 149607200 Z13.1 -- labs done; report pending Hepatitis C screening 41 7582499 Z11.59 -- labs done; report pending HIV screening 708328867 Z11.4 -- labs done; report pending Active or passive immunization 459244940 Z23 -- current Screening for malignant neoplasm of colon 679613110 Z12.11 -- gastroente rologist Dr Slava Gomez recommends repeating colonoscop y 10 years from 05/02/16 Screening for malignant neoplasm of prostate 963625156 Z12.5 -- PSA level of 1.2 (06/17/22) [id number] Gabino Melvin MD [place] [employer], [facility] [address] [address] 08/24/2023 09:12:35 08/24/2023 11:08:16 Adult health examination 158074999 Z00.00 Essential hypertension 34144961 I10 -- recheck lab(s) around 01/25/24 Hyperlipidemia 30933976 E78.5 (TC 151, TG 65, HDL 58, & LDL 80 -- on 06/17/22) -- Based on the current ASCVD risk calculatio n of 5.0% on 07/07/22-- recheck lab(s) around 01/25/24 Body mass index 25-29 - overweight 542357255 Z68.28 -- advised weight; pt gained 2 # since his last visit-- pt's BMI today is 28.3 (ideal is between 20-25) Hepatitis C screening 41 9882457 Z11.59 -- tested negative for Hepatitis C on 07/29/22 HIV screening 432374561 Z11.4 -- tested negative for HIV on on 07/29/22 Active or passive immunization 333035145 Z23 -- current Screening for malignant neoplasm of colon 225044804 Z12.11 -- gastroente rologist Dr Slava Gomez recommends repeating colonoscop y 10 years from 05/02/16 Screening for malignant neoplasm of prostate 888541134 Z12.5 -- PSA level of 1.2 (06/17/22)-- check PSA level within 2 weeks from 08/24/23 Cervical radiculopathy 32898607 M54.12 (started around Dec 2022 during soccer season)-- vs injury to long thoracic nerve vs dorsal scapular nerve, vs spinal accessory nerve, Pain of ri ght knee region 1865634027 14044 M25.561 (since July 2023; at Rt medial knee) -- currently without pain; but has pain w/ squating; no giving out or locking Impaired g lucose tolerance 7970742 R73.03 -- A1c improved from 5.9 (07/29/22) --> 5.8 07/30/23)-- you will need to limit Carbohydra allison intake to 40 gram per meal & also a maximum of 120 grams a day.-- Examples of Carbohydra allison are: ice-cream, sweet sugar treats, Sodas, rice, potatoes, sweet potatoes (yams), bananas, corn products (popcorn, corn muffin, corn bread, cornflakes , corn ), oats, flour products (pasta, bread, bagel, muffins, donuts, biscuits, cookies, crackers, pancakes, waffle, cakes, pies &/or Alcohol.-- recheck lab(s) around 01/25/24 [id number] Gabino Melvin MD [facility], [place] [address] [facility] ,[address] [address] 02/22/2024 10:15:38 02/22/2024 12:36:04 Cervical radiculopathy 57886176 M54.12 (started around Dec 2022 during soccer season)-- improved a lot w/ PT at [facility]; now has stiffness periodical ly Pain of ri t knee region 6402211843 62278 M25.561 (since July 2023; at Rt medial knee) -- currently without pain; but has pain w/ squating; no giving out or locking Essential hypertension 11036804 I10 -- recheck lab(s) around 08/27/24 Hyperlipidemia 94278754 E78.5 Current ASCVD risk calculatio n is 5.8% (02/22/24) -- recheck lab(s) around 08/27/24 Impaired g lucose tolerance 3797047 R73.03 -- A1c improved from 5.9 (07/29/22) --> 5.8 (07/30/23)- - you will need to limit Carbohydra allison intake to 40 gram per meal & also a maximum of 120 grams a day.-- Examples of Carbohydra allison are: ice-cream, sweet sugar treats, Sodas, rice, potatoes, sweet potatoes (yams), bananas, corn products (popcorn, corn muffin, corn bread, cornflakes , corn ), oats, flour products (pasta, bread, bagel, muffins, donuts, biscuits, cookies, crackers, pancakes, waffle, cakes, pies &/or Alcohol.-- recheck lab(s) around 08/27/24 Body mass index 25-29 - overweight 572855571 Z68.28 -- advised weight; pt gained 2 # since his last visit-- pt's BMI today is 28.3 (ideal is between 20-25) Hepatitis C screening 41 2624605 Z11.59 -- tested negative for Hepatitis C on 07/29/22 HIV screening 936053049 Z11.4 -- tested negative for HIV on on 07/29/22 Active or passive immunization 543161694 Z23 -- current Screening for malignant neoplasm of colon 303583695 Z12.11 -- gastroente rologist Dr Slava Gomez recommends repeating colonoscop y 10 years from 05/02/16 Screening for malignant neoplasm of prostate 089864714 Z12.5 -- PSA level of 1.2 (06/17/22) --> 1.6 (08/28/23)- - recheck lab(s) around 08/27/24 [id number] Gabino Melvin MD [facility], [place] [address] [facility] ,[address] [address] 09/06/2024 09:03:26 09/06/2024 10:44:23 Well adult 792194140 Z00.00 12387828 Essential hypertension 42077726 I10 Hyperlipidemia 12270111 E78.5 Current ASCVD risk calculatio n is 5.8% (02/22/24) -- recheck lab(s) around 08/27/24 Impaired g lucose tolerance 5302500 R73.03 -- A1c improved from 5.9 (07/29/22) --> 5.8 (07/30/23)- - you will need to limit Carbohydra allison intake to 40 gram per meal & also a maximum of 120 grams a day.-- Examples of Carbohydra allison are: ice-cream, sweet sugar treats, Sodas, rice, potatoes, sweet potatoes (yams), bananas, corn products (popcorn, corn muffin, corn bread, cornflakes , corn ), oats, flour products (pasta, bread, bagel, muffins, donuts, biscuits, cookies, crackers, pancakes, waffle, cakes, pies &/or Alcohol.-- check A1c 2 weeks from 09/06/24 Cervical radiculopathy 61351410 M54.12 (started around Dec 2022 during soccer season)-- improved a lot w/ PT at [facility]; now has stiffness periodical ly Pain of ri t knee region 4751637225 36488 M25.561 (since July 2023; at Rt medial knee) -- currently without pain; but has pain w/ squating; no giving out or locking Body mass index 25-29 - overweight 415861723 Z68.28 -- advised weight; pt gained 1 # since his last visit-- pt's BMI today is 28.2 (ideal is between 20-25) Hepatitis C screening 41 9421644 Z11.59 -- tested negative for Hepatitis C on 07/29/22 HIV screening 044381586 Z11.4 -- tested negative for HIV on on 07/29/22 Active or passive immunization 575679308 Z23 -- current Screening for malignant neoplasm of colon 829164278 Z12.11 -- gastroente rologist Dr Slava Gomez recommends repeating colonoscop y 10 years from 05/02/16 Screening for malignant neoplasm of prostate 947497021 Z12.5 -- PSA level of 1.2 (06/17/22) --> 1.6 (08/28/23) --> 2.0 (08/22/24) Benign pro static hyperplasia 920980871 N40.0 9172129 -- check lab(s) around 02/20/25 Melanocyti c nevus of skin 577684856 D22.9 16688004 -- skin surveillan ce Health Concerns Section Related Observation LastModified by Organization Detai ls LastModified Time None Recorded Concern Status LastModified by Organization Details LastModified Time None Recorded Advance Directives Directive Y: Payers Insurance Date Sequence Insurance Name Policy Number Policy Ricci Covered Member ID Ricci Member ID Guarantor Name 07/22/2024 1 [employer] [id number] Kenny Abdullahi [id number] Kenny Abdullahi 09/10/2024 1 [facility] [id number] Kenny Abdullahi [id number] Kenny Abdullahi Notes Date Note Type Note Provider Name and Address Organization Details Recorded Time 07/07/2022 text/html Pt comes in to get acquainted medically. Pt feels well and has no c/o. Pt has no new sx and no increasing sx. Patient denies any jaw or neck discomfort, left arm pain/left arm discomfort, chest discomfort/pain, diaphoresis, breathing symptoms/chest tightness, indigestion sx, n/v, any angina equivalent symptoms, etc. Gabino Melvin MD [address] [place] [address] [address], [place], [address], [facility] 07/07/2022 15:56:50 08/10/2022 text/html Pt comes in for f/u of labs and is also due for annual PE. Pt feels well and has no c/o. Pt has no new sx and no increasing sx. Patient denies any jaw or neck discomfort, left arm pain/left arm discomfort, chest discomfort/pain, diaphoresis, breathing symptoms/chest tightness, indigestion sx, n/v, any angina equivalent symptoms, etc. MD Samuel Crespo [facility] [address], [place], [address], [facility] 08/10/2022 19:09:33 08/24/2023 text/html Pt comes in for Rt scapula pain and rt knee pain. Pt is also due for annual PE. Pt feels well and has no other c/o. Patient denies any jaw or neck discomfort, left arm pain/left arm discomfort, chest discomfort/pain, diaphoresis, breathing symptoms/chest tightness, indigestion sx, n/v, any angina equivalent symptoms, etc. MD Samuel Crespo [facility] [address], [place], [address], [facility] 08/24/2023 11:09:42 02/22/2024 text/html Pt comes in for f/u of HTN, HLD, pre-DM, OA, and weight. Pt feels well and has no c/o. Pt has no new sx and no increasing sx. Patient denies any jaw or neck discomfort, left arm pain/left arm discomfort, chest discomfort/pain, diaphoresis, breathing symptoms/chest tightness, indigestion sx, n/v, any angina equivalent symptoms, etc. Gabino Melvin MD [facility] [address] [facility] [address], [place], [address], [facility] 02/22/2024 12:36:18 09/06/2024 text/html Pt comes in for f/u of HTN, pre-DM, and neck pain (no pain but has occasional stiffness; no other sx). Pt also due for annual PE. Pt feels well and has no c/o. Pt has no new sx and no increasing sx. Patient denies any jaw or neck discomfort, left arm pain/left arm discomfort, chest discomfort/pain, diaphoresis, breathing symptoms/chest tightness, indigestion sx, n/v, any angina equivalent symptoms, etc. Gabino Melvin MD [id number], [place], [address], [facility] 09/06/2024 10:42:43
[2025-01-22 21:29] LABS: Hematocrit 45.3 % (42.0-52.0); Hemoglobin 15.8 g/dL (14.0-18.0); Immature Granulocyte Percent A 0.6 % (0-0.5); Lymphocytes Absolute Auto 0.71 K/mm3 (0.9-3.2); Mean Corpuscular HGB Conc 34.9 g/dl (32-36); Mean Corpuscular Hemoglobin 31.0 pg (26-34); Mean Corpuscular Volume 89.0 fl (80-100); Nucleated Red Blood Cells Absolute Auto 0.000 K/mm3 (0.0-0.012); Nucleated Red Blood Cells Perc 0.0 % (0.0-0.2); Platelet Count Result 226 k/mm3 (150-375); Red Blood Count 5.09 M/mm3 (4.6-6.20); White Blood Count 12.0 K/mm3 (4.5-10.0)
[2025-01-22 23:28] LABS: Add Urine Microscopic? YES; Appearance Urine Clear (Clear); Glucose Urine UA Negative (Negative); Leukocyte Esterase Ur Negative LEU/UL (Negative); Nitrate Urine Negative (Negative); Specific Grav Ur > 1.045 (1.001-1.035)
--- NOTE | 2025-01-22 23:34 | ED_ITS ---
HPI - General Adult General Chief complaint: Recheck/Abnormal Lab/Rx <IVAN Rajan Last Filed: 01/23/25 00:50> Stated complaint: from urgent care, abdominal pain <IVAN Rajan Last Filed: 01/23/25 00:50> Time Seen by Provider: 01/22/25 21:30 <IVAN Rajan Last Filed: 01/23/25 00:50> Source: patient <IVAN Rajan Last Filed: 01/23/25 00:50> Mode of arrival: ambulatory <IVNA Rajan Last Filed: 01/23/25 00:50> Limitations: no limitations <IVAN Rajan Last Filed: 01/23/25 00:50> History of Present Illness HPI narrative: Patient is a 59-year-old male who presents the ED with report of lower abdominal pain. Reports having pain since Monday night throughout his lower abdomen, abdominal bloating, nausea. Has been having bowel movements and denies diarrhea, rectal bleeding, melena. States he does feel as though it had been taking longer to have bowel movement and he had to sit on the toilet longer than usual. Denies fevers. Went to [facility] today and had a CT scan of abdomen/pelvis performed which showed perforated sigmoid diverticulitis with adjacent abscess. Sent here for further evaluation. Patient denies previous history of diverticulitis. Had a colonoscopy at age 50 and is due for 1 next year. <IVAN Rajan Last Filed: 01/23/25 00:50> Related Data Home medications: Home Medications ?Medication ?Instructions ?Recorded ?Confirmed ?Last Taken ?Type multivitamin 1 tablet PO DAILY 06/04/19 1 03/25/24 Unknown History <IVAN Rajan Last Filed: 01/23/25 00:50> Allergies/adverse reactions: Allergies Allergy/AdvReac Type Severity Reaction Status Date / Time propoxyphene Allergy Intermediate HIVES Verified 01/23/25 01:39 <IVAN Rajan Last Filed: 01/23/25 00:50> Review of Systems 2 Review of Systems: All systems reviewed & are unremarkable except as noted in HPI. <Sarahy Choudhary PA-C - Last Filed: 01/23/25 00:50> All systems reviewed & are unremarkable except as noted in HPI and below < Sarahy Choudhary PA-C - Last Filed: 01/23/25 00:50> PMFSH Social History Social History: Social History Smoking status: Never smoker Second hand tobacco smoke exposure: No Alcohol intake: current Drinks per week: 4 Substance use: never Lack of Transportation: No Lack of Food: Never True Current Housing: I Have Housing Concerned About Future Housing: No Difficulty Paying Gas/Electric Bills: No Difficulty Paying for Meds: No Currently Unemployed: No Education: Bachelor's Degree Difficulty w/ Childcare or Family Care: No Spiritual care concerns: No <Sarahy Choudhary PA-C - Last Filed: 01/23/25 00:50> Exam 2 Narrative: GENERAL: Well appearing, well-nourished, non-toxic, in no acute distress. HEAD: Normocephalic, atraumatic. RESPIRATORY: Airway patent, respirations nonlabored. Clear to auscultation bilaterally, no rales, rhonchi, wheezing. CARDIOVASCULAR: Regular rate and rhythm without murmurs, rubs, or gallops. ABDOMINAL: Soft, mild diffuse tenderness in mid and right lower abdomen, no rebound, nondistended. Normoactive BS. MUSCULOSKELETAL: Moves all extremities. No gross deformities. SKIN: Warm, dry, normal color. NEURO: A&O X3. Speech clear. Cranial nerves II-XII grossly intact. Steady gait. No ataxic movements. PSYCHIATRIC: Appropriate mood and affect. Normal interaction. 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 I was available for consultation while this patient was in the emergency department and reviewed the chart asynchronously and heard the PA discuss patient with inpatient care team but otherwise did not personally examine them and was not directly involved in their care. <Ciara Alejo MD - Last Filed: 01/23/25 18:20> Vital Signs Vital signs: Vital Signs Temperature 97.4 F L 01/22/25 20:08 Pulse Rate 87 01/22/25 20:08 Respiratory Rate 20 01/22/25 20:08 Blood Pressure 133/83 01/22/25 20:08 Pulse Oximetry 98 01/22/25 20:08 Temperature 96.7 F L 01/23/25 14:00 Pulse Rate 80 01/23/25 14:00 Respiratory Rate 18 01/23/25 14:00 Blood Pressure 130/77 01/23/25 14:00 Pulse Oximetry 98 01/23/25 14:00 Oxygen Delivery Nasal Cannula 01/23/25 12:10 Oxygen Flow Rate 2 01/23/25 12:10 <Sarahy Choudhary PA-C - Last Filed: 01/23/25 00:50> Vital Signs Temperature 97.4 F L 01/22/25 20:08 Pulse Rate 87 01/22/25 20:08 Respiratory Rate 20 01/22/25 20:08 Blood Pressure 133/83 01/22/25 20:08 Pulse Oximetry 98 01/22/25 20:08 Temperature 96.7 F L 01/23/25 14:00 Pulse Rate 80 01/23/25 14:00 Respiratory Rate 18 01/23/25 14:00 Blood Pressure 130/77 01/23/25 14:00 Pulse Oximetry 98 01/23/25 14:00 Oxygen Delivery Nasal Cannula 01/23/25 12:10 Oxygen Flow Rate 2 01/23/25 12:10 <Ciara Alejo MD - Last Filed: 01/23/25 18:20> Medical Decision Making MDM Narrative Medical decision making narrative: CT abd/pelvis w/ contrast from (imaging uploaded to synapse for review): Findings consistent with perforated sigmoid diverticulitis with an adjacent 5cm abscess and small volume free air. There is resulting significant wall thickening and tenderness surrounding small bowel with dilated small bowel proximal to the site which may be due to a reactive ileus versus partial small- bowel obstruction. Recommend surgical consultation. CBC with white blood cell count 12. Neutrophil predominance. No bandemia. Lactic acid within normal range. Remainder basic laboratory studies otherwise unremarkable. Evidence of dehydration on UA. Given fluids. Blood cultures obtained. Zosyn started in the ED. Patient will be admitted for further evaluation. Discussed case with Dr. Saldaña, general surgery, advised will consult, keep NPO. Did verify with Radiology that Dr. Lizama will be here tomorrow possible percutaneous abscess drainage. Discussed case with Dr. Constantino, hospitalist, accepted patient for admission. Patient is in agreement with plan and need for admission. All questions answered. <Sarahy Choudhary PA-C - Last Filed: 01/23/25 00:50> Medical Records Medical records reviewed: Yes I reviewed the external patient's medical records. <IVAN Rajan Last Filed: 01/23/25 00:50> Vital Signs Vital Signs: Vital Signs Temperature 97.4 F L 01/22/25 20:08 Pulse Rate 87 01/22/25 20:08 Respiratory Rate 20 01/22/25 20:08 Blood Pressure 133/83 01/22/25 20:08 Pulse Oximetry 98 01/22/25 20:08 Temperature 96.7 F L 01/23/25 14:00 Pulse Rate 80 01/23/25 14:00 Respiratory Rate 18 01/23/25 14:00 Blood Pressure 130/77 01/23/25 14:00 Pulse Oximetry 98 01/23/25 14:00 Oxygen Delivery Nasal Cannula 01/23/25 12:10 Oxygen Flow Rate 2 01/23/25 12:10 <Sarahy Choudhary PA-C - Last Filed: 01/23/25 00:50> Vital Signs Temperature 97.4 F L 01/22/25 20:08 Pulse Rate 87 01/22/25 20:08 Respiratory Rate 20 01/22/25 20:08 Blood Pressure 133/83 01/22/25 20:08 Pulse Oximetry 98 01/22/25 20:08 Temperature 96.7 F L 01/23/25 14:00 Pulse Rate 80 01/23/25 14:00 Respiratory Rate 18 01/23/25 14:00 Blood Pressure 130/77 01/23/25 14:00 Pulse Oximetry 98 01/23/25 14:00 Oxygen Delivery Nasal Cannula 01/23/25 12:10 Oxygen Flow Rate 2 01/23/25 12:10 <Ciara Alejo MD - Last Filed: 01/23/25 18:20> Lab Data Lab results reviewed: Yes I reviewed the patient's lab results. <Sarahy Choudhary PA-C - Last Filed: 01/23/25 00:50> Result diagrams: 01/23/25 05:41 01/23/25 05:41 <aSrahy Choudhary PA-C - Last Filed: 01/23/25 00:50> Labs: Lab Results 01/22/25 01/22/25 01/22/25 Range/Units 21:21 21:46 22:53 WBC 12.0 H (4.5-10.0) K/mm3 RBC 5.09 (4.6-6.20) M/mm3 Hgb 15.8 (14.0-18.0) g/dL Hct 45.3 (42.0-52.0) % MCV 89.0 (80-100) fl MCH 31.0 (26-34) pg MCHC 34.9 (32-36) g/dl RDW 12.7 (11.5-14.5) % Plt Count 226 (150-375) k/mm3 MPV 8.8 (7.4-10.4) fl Immature Gran % (Auto) 0.6 H (0-0.5) % Neut % (Auto) 85.9 H (45.5-73.1) % Lymph % (Auto) 5.9 L (18.3-44.2) % [place] % (Auto) 7.0 (2.6-8.5) % Eos % (Auto) 0.5 (0-4.4) % Baso % (Auto) 0.1 L (0.2-1.2) % Lymph # (Auto) 0.71 L (0.9-3.2) K/mm3 [place] # (Auto) 0.8 H (0.1-0.6) K/mm3 Eos # (Auto) 0.1 (0-0.3) K/mm3 Baso # (Auto) 0.0 (0.0-0.1) K/mm3 Abs Immat Gran (auto) 0.07 H (0.00-0.031) K/mm3 Absolute Neuts (auto) 10.3 H (1.3-6.7) K/mm3 Absolute Nucleated RBC 0.000 (0.0-0.012) K/mm3 Nucleated RBC % 0.0 (0.0-0.2) % PT (11.1-14.7) Seconds INR Sodium 137 (137-145) mmol/L Potassium 4.4 (3.4-5.0) mmol/L Chloride 101 (98-107) mmol/L Carbon Dioxide 26 (22-30) mmol/L Anion Gap 10 (4-12) mmol/L BUN 20 (9-20) mg/dL Creatinine 1.01 (0.7-1.3) mg/dL Estim Creat Clear Calc 65 ml/min Estimated GFR > 60 (59 - ) Glucose 125 H (65-110) mg/dL Lactic Acid 1.2 (0.7-2.0) mmol/L Calcium 9.4 (8.4-10.2) mg/dL Magnesium (1.6-2.3) mg/dL Total Bilirubin 1.7 H (0.2-1.3) mg/dL AST 26 (17-59) U/L ALT 20 (6-50) U/L Alkaline Phosphatase 58 (38-126) U/L Total Protein 7.6 (6.3-8.2) g/dL Albumin 4.2 (3.5-5.1) g/dL Lipase 36 (23-300) U/L Procalcitonin ng/mL Urine Color Yellow (Yellow) Urine Appearance Clear (Clear) Urine pH 6.0 (5.0-9.0) Ur Specific [place] > 1.045 H (1.001-1.035) Urine Protein 1+ H (Negative) mg/dL Urine Glucose (UA) Negative (Negative) mg/dL Urine Ketones 2+ H (Negative) mg/dL Ur Blood (Man) Negative (Negative) Urine Nitrate Negative (Negative) Urine Bilirubin Negative (Negative) Urine Urobilinogen 1.0 (<2.0) mg/dL Leukocyte Esterase Rfl Negative (Negative) SAW/UL Urine RBC 0-2 (0-2) /hpf Urine WBC 0-5 (0-3) /hpf Ur Squamous Epith Cells None seen (Few) /hpf Urine Bacteria None seen /hpf 11/13/25 Range/Units 05:41 WBC 9.5 (4.5-10.0) K/mm3 RBC 4.39 L (4.6-6.20) M/mm3 Hgb 13.6 L (14.0-18.0) g/dL Hct 39.6 L (42.0-52.0) % MCV 90.2 (80-100) fl MCH 31.0 (26-34) pg MCHC 34.3 (32-36) g/dl RDW 12.6 (11.5-14.5) % Plt Count 200 (150-375) k/mm3 MPV 8.8 (7.4-10.4) fl Immature Gran % (Auto) 0.2 (0-0.5) % Neut % (Auto) 79.4 H (45.5-73.1) % Lymph % (Auto) 10.3 L (18.3-44.2) % [place] % (Auto) 8.0 (2.6-8.5) % Eos % (Auto) 1.8 (0-4.4) % Baso % (Auto) 0.3 (0.2-1.2) % Lymph # (Auto) 0.98 (0.9-3.2) K/mm3 [place] # (Auto) 0.8 H (0.1-0.6) K/mm3 Eos # (Auto) 0.2 (0-0.3) K/mm3 Baso # (Auto) 0.0 (0.0-0.1) K/mm3 Abs Immat Gran (auto) 0.02 (0.00-0.031) K/mm3 Absolute Neuts (auto) 7.6 H (1.3-6.7) K/mm3 Absolute Nucleated RBC 0.000 (0.0-0.012) K/mm3 Nucleated RBC % 0.0 (0.0-0.2) % PT 15.7 H (11.1-14.7) Seconds INR 1.3 Sodium 134 L (137-145) mmol/L Potassium 4.4 (3.4-5.0) mmol/L Chloride 105 (98-107) mmol/L Carbon Dioxide 23 (22-30) mmol/L Anion Gap 6 (4-12) mmol/L BUN 18 (9-20) mg/dL Creatinine 0.91 (0.7-1.3) mg/dL Estim Creat Clear Calc 72 ml/min Estimated GFR > 60 (59 - ) Glucose 108 (65-110) mg/dL Lactic Acid (0.7-2.0) mmol/L Calcium 8.3 L (8.4-10.2) mg/dL Magnesium 2.2 (1.6-2.3) mg/dL Total Bilirubin 1.3 (0.2-1.3) mg/dL AST 21 (17-59) U/L ALT 15 (6-50) U/L Alkaline Phosphatase 53 (38-126) U/L Total Protein 6.2 L (6.3-8.2) g/dL Albumin 3.3 L (3.5-5.1) g/dL Lipase (23-300) U/L Procalcitonin 0.1 ng/mL Urine Color (Yellow) Urine Appearance (Clear) Urine pH (5.0-9.0) Ur Specific [place] (1.001-1.035) Urine Protein (Negative) mg/dL Urine Glucose (UA) (Negative) mg/dL Urine Ketones (Negative) mg/dL Ur Blood (Man) (Negative) Urine Nitrate (Negative) Urine Bilirubin (Negative) Urine Urobilinogen (<2.0) mg/dL Leukocyte Esterase Rfl (Negative) SAW/UL Urine RBC (0-2) /hpf Urine WBC (0-3) /hpf Ur Squamous Epith Cells (Few) /hpf Urine Bacteria /hpf <Sarahy Choudhary PA-C - Last Filed: 01/23/25 00:50> Lab Results 01/22/25 01/22/25 01/22/25 Range/Units 21:21 21:46 22:53 WBC 12.0 H (4.5-10.0) K/mm3 RBC 5.09 (4.6-6.20) M/mm3 Hgb 15.8 (14.0-18.0) g/dL Hct 45.3 (42.0-52.0) % MCV 89.0 (80-100) fl MCH 31.0 (26-34) pg MCHC 34.9 (32-36) g/dl RDW 12.7 (11.5-14.5) % Plt Count 226 (150-375) k/mm3 MPV 8.8 (7.4-10.4) fl Immature Gran % (Auto) 0.6 H (0-0.5) % Neut % (Auto) 85.9 H (45.5-73.1) % Lymph % (Auto) 5.9 L (18.3-44.2) % [place] % (Auto) 7.0 (2.6-8.5) % Eos % (Auto) 0.5 (0-4.4) % Baso % (Auto) 0.1 L (0.2-1.2) % Lymph # (Auto) 0.71 L (0.9-3.2) K/mm3 [place] # (Auto) 0.8 H (0.1-0.6) K/mm3 Eos # (Auto) 0.1 (0-0.3) K/mm3 Baso # (Auto) 0.0 (0.0-0.1) K/mm3 Abs Immat Gran (auto) 0.07 H (0.00-0.031) K/mm3 Absolute Neuts (auto) 10.3 H (1.3-6.7) K/mm3 Absolute Nucleated RBC 0.000 (0.0-0.012) K/mm3 Nucleated RBC % 0.0 (0.0-0.2) % PT (11.1-14.7) Seconds INR Sodium 137 (137-145) mmol/L Potassium 4.4 (3.4-5.0) mmol/L Chloride 101 (98-107) mmol/L Carbon Dioxide 26 (22-30) mmol/L Anion Gap 10 (4-12) mmol/L BUN 20 (9-20) mg/dL Creatinine 1.01 (0.7-1.3) mg/dL Estim Creat Clear Calc 65 ml/min Estimated GFR > 60 (59 - ) Glucose 125 H (65-110) mg/dL Lactic Acid 1.2 (0.7-2.0) mmol/L Calcium 9.4 (8.4-10.2) mg/dL Magnesium (1.6-2.3) mg/dL Total Bilirubin 1.7 H (0.2-1.3) mg/dL AST 26 (17-59) U/L ALT 20 (6-50) U/L Alkaline Phosphatase 58 (38-126) U/L Total Protein 7.6 (6.3-8.2) g/dL Albumin 4.2 (3.5-5.1) g/dL Lipase 36 (23-300) U/L Procalcitonin ng/mL Urine Color Yellow (Yellow) Urine Appearance Clear (Clear) Urine pH 6.0 (5.0-9.0) Ur Specific [place] > 1.045 H (1.001-1.035) Urine Protein 1+ H (Negative) mg/dL Urine Glucose (UA) Negative (Negative) mg/dL Urine Ketones 2+ H (Negative) mg/dL Ur Blood (Man) Negative (Negative) Urine Nitrate Negative (Negative) Urine Bilirubin Negative (Negative) Urine Urobilinogen 1.0 (<2.0) mg/dL Leukocyte Esterase Rfl Negative (Negative) SAW/UL Urine RBC 0-2 (0-2) /hpf Urine WBC 0-5 (0-3) /hpf Ur Squamous Epith Cells None seen (Few) /hpf Urine Bacteria None seen /hpf 01/23/25 Range/Units 05:41 WBC 9.5 (4.5-10.0) K/mm3 RBC 4.39 L (4.6-6.20) M/mm3 Hgb 13.6 L (14.0-18.0) g/dL Hct 39.6 L (42.0-52.0) % MCV 90.2 (80-100) fl MCH 31.0 (26-34) pg MCHC 34.3 (32-36) g/dl RDW 12.6 (11.5-14.5) % Plt Count 200 (150-375) k/mm3 MPV 8.8 (7.4-10.4) fl Immature Gran % (Auto) 0.2 (0-0.5) % Neut % (Auto) 79.4 H (45.5-73.1) % Lymph % (Auto) 10.3 L (18.3-44.2) % [place] % (Auto) 8.0 (2.6-8.5) % Eos % (Auto) 1.8 (0-4.4) % Baso % (Auto) 0.3 (0.2-1.2) % Lymph # (Auto) 0.98 (0.9-3.2) K/mm3 [place] # (Auto) 0.8 H (0.1-0.6) K/mm3 Eos # (Auto) 0.2 (0-0.3) K/mm3 Baso # (Auto) 0.0 (0.0-0.1) K/mm3 Abs Immat Gran (auto) 0.02 (0.00-0.031) K/mm3 Absolute Neuts (auto) 7.6 H (1.3-6.7) K/mm3 Absolute Nucleated RBC 0.000 (0.0-0.012) K/mm3 Nucleated RBC % 0.0 (0.0-0.2) % PT 15.7 H (11.1-14.7) Seconds INR 1.3 Sodium 134 L (137-145) mmol/L Potassium 4.4 (3.4-5.0) mmol/L Chloride 105 (98-107) mmol/L Carbon Dioxide 23 (22-30) mmol/L Anion Gap 6 (4-12) mmol/L BUN 18 (9-20) mg/dL Creatinine 0.91 (0.7-1.3) mg/dL Estim Creat Clear Calc 72 ml/min Estimated GFR > 60 (59 - ) Glucose 108 (65-110) mg/dL Lactic Acid (0.7-2.0) mmol/L Calcium 8.3 L (8.4-10.2) mg/dL Magnesium 2.2 (1.6-2.3) mg/dL Total Bilirubin 1.3 (0.2-1.3) mg/dL AST 21 (17-59) U/L ALT 15 (6-50) U/L Alkaline Phosphatase 53 (38-126) U/L Total Protein 6.2 L (6.3-8.2) g/dL Albumin 3.3 L (3.5-5.1) g/dL Lipase (23-300) U/L Procalcitonin 0.1 ng/mL Urine Color (Yellow) Urine Appearance (Clear) Urine pH (5.0-9.0) Ur Specific [place] (1.001-1.035) Urine Protein (Negative) mg/dL Urine Glucose (UA) (Negative) mg/dL Urine Ketones (Negative) mg/dL Ur Blood (Man) (Negative) Urine Nitrate (Negative) Urine Bilirubin (Negative) Urine Urobilinogen (<2.0) mg/dL Leukocyte Esterase Rfl (Negative) SAW/UL Urine RBC (0-2) /hpf Urine WBC (0-3) /hpf Ur Squamous Epith Cells (Few) /hpf Urine Bacteria /hpf <Ciara Alejo MD - Last Filed: 01/23/25 18:20> Imaging Data Attestation: I personally reviewed and interpreted this imaging study as follows: < Sarahy Choudhary PA-C - Last Filed: 01/23/25 00:50> Discharge Plan Discharge Clinical Impression: Abscess of sigmoid colon due to diverticulitis, Perforation of sigmoid colon due to diverticulitis <Sarahy Choudhary PA-C - Last Filed: 01/23/25 00:50> Patient Disposition: Still a Patient <IVAN Rajan Last Filed: 01/23/25 00:50> Condition: Stable <IVAN Rajan Last Filed: 01/23/25 00:50>
[2025-01-22 23:47] LABS: Alanine Aminotransferase 20 U/L (6-50); Albumin Level 4.2 g/dL (3.5-5.1); Alkaline Phosphatase 58 U/L (38-126); Anion Gap 10 mmol/L (4-12); Aspartate Amino Transferase 26 U/L (17-59); Bilirubin,Total 1.7 mg/dL (0.2-1.3); Blood Urea Nitrogen 20 mg/dL (9-20); Calcium 9.4 mg/dL (8.4-10.2); Carbon Dioxide 26 mmol/L (22-30); Chloride 101 mmol/L (98-107); Estimated CRCL calculation 65 ml/min; Estimated Glomerular Filt Rate > 60; Glucose 125 mg/dL (65-110); Lipase 36 U/L (23-300); Potassium 4.4 mmol/L (3.4-5.0); Sodium 137 mmol/L (137-145); Total Protein 7.6 g/dL (6.3-8.2)
[2025-01-22] MEDS: PIPERACILLIN/TAZOBACTAM SOD 3.375 GM in SODIUM CHLORIDE 0.9% IV 50 ML 100 ML IVPB (23:56)
[2025-01-23] VITALS (24 sets, daily range): BP systolic 113–147; BP diastolic 64–94; PULSE 75–90; RESP 16–23; TEMP 35.9–37.2; O2SAT 96–100; BMI 28.5
[2025-01-23] MEDS: SODIUM CHLORIDE 0.9% IV 1,000 ML 999 ML IV CONT (00:30)
--- NOTE | 2025-01-23 01:25 | WPCEDHO ---
ED Hand Off Checklist All vitals saved:yes IV Site documented:yes All med administrations documented:yes Triage Note Triage Note Pt to ED with abdominal pain. Pt 01/22/25 20:08 states he went to today and they did a CT scan and found diverticulitis with an abscess that ruptured. Per staff he was told to go straight to an ED. Allergies propoxyphene Allergy (Intermediate, Verified 12/20/21 13:00) HIVES Administered/Completed Medications Discontinued Medications Piperacillin Sod/Tazobactam (Sod 3.375 gm/ Sodium Chloride) 50 mls @ 100 mls/hr IVPB ONCE STA Stop: 01/23/25 00:04 Last Infusion: 01/23/25 00:30 Dose: Infused Documented By: Admin: 01/22/25 23:56 Dose: 100 mls/hr Documented By: WALTER Sodium Chloride (Normal Saline Iv) 1,000 mls @ 999 mls/hr IV CONT .Q1H1M STA Stop: 01/23/25 01:05 Last Admin: 01/23/25 00:30 Dose: 999 mls/hr Documented By: WALTER Interventions/Assessments General Assessment Start: 01/22/25 20:06 Freq: Status: Active Protocol: Document 01/22/25 23:27 WALTER (Rec: 01/22/25 23:28 WALTER [id number]) GA Neurological Assessment Neurological Yes Assessment WNL GA HEENT Assessment HEENT Assessment WNL Yes GA Cardiovascular Assessment Cardiovascular Yes Assessment WNL GA Gastrointestinal Assessment Gastrointestinal No Assessment WNL Gastrointestinal Pain Symptoms Pattern Normal GA Genitourinary Assessment Genitourinary WNL Parameters GA Psychosocial Assessment Psychosocial Yes Assessment WNL IV / Saline Lock, Insert Start: 01/22/25 20:38 Freq: STAT Status: Active Protocol: Document 01/22/25 21:39 HNK (Rec: 01/22/25 21:40 HNK [id number]) IV Assessment Peripheral Access Left Antecubital IV Catheter Access Initiated Before Arrival Catheter Gauge 18 Last Vital Signs Temperature 97.4 F L 01/22/25 20:08 Pulse Rate 78 01/23/25 01:16 Respiratory Rate 20 01/23/25 01:16 Pulse Oximetry 99 01/23/25 01:16 Blood Pressure 113/66 01/23/25 01:16 Blood Pressure Mean 81 01/23/25 01:16 Weight 82.6 kg 01/22/25 20:08 Last Result - Abnormals Only WBC 12.0 K/mm3 (4.5-10.0) H 01/22/25 21:21 Immature Gran % (Auto) 0.6 % (0-0.5) H 01/22/25 21:21 Neut % (Auto) 85.9 % (45.5-73.1) H 01/22/25 21:21 Lymph % (Auto) 5.9 % (18.3-44.2) L 01/22/25 21:21 Baso % (Auto) 0.1 % (0.2-1.2) L 01/22/25 21:21 Lymph # (Auto) 0.71 K/mm3 (0.9-3.2) L 01/22/25 21:21 [place] # (Auto) 0.8 K/mm3 (0.1-0.6) H 01/22/25 21:21 Abs Immat Gran (auto) 0.07 K/mm3 (0.00-0.031) H 01/22/25 21:21 Absolute Neuts (auto) 10.3 K/mm3 (1.3-6.7) H 01/22/25 21:21 Glucose 125 mg/dL (65-110) H 01/22/25 21:21 Total Bilirubin 1.7 mg/dL (0.2-1.3) H 01/22/25 21:21 Ur Specific [place] > 1.045 (1.001-1.035) H 01/22/25 22:53 Urine Protein 1+ mg/dL (Negative) H 01/22/25 22:53 Urine Ketones 2+ mg/dL (Negative) H 01/22/25 22:53 Most Recent Suicide Severity Rating Suicide Severity Rating NO RISK INDICATED 01/22/25 20:08
--- NOTE | 2025-01-23 01:38 | ADMGEN ---
This patient, Kenny Abdullahi, was admitted to 2 Medical Room 259-. Patient/family oriented to hospital policies and general routines including ID bracelet, bed and alarms, visiting hours, pain management, procedures, bathroom and other care routines, personal items, smoking policy, room service/diet, and visiting hours. Information on how to activate the Rapid Response Team has been discussed. Patient/Family are encouraged to report perceived risks to care and to ask questions if they do not understand what they are told or what they should do.
[2025-01-23] MEDS: SODIUM CHLORIDE 0.9% IV 1,000 ML 125 ML IV CONT ×2 (03:25→12:44)
[2025-01-23] MEDS: PIPERACILLIN/TAZOBACTAM SOD 3.375 GM in SODIUM CHLORIDE 0.9% IV 50 ML 100 ML IVPB ×3 (05:29→17:29)
--- NOTE | 2025-01-23 05:32 | PM.IMHP ---
H&P: HPI History of Present Illness Date/Time: 01/23/25 05:32 Chief Complaint: Abdominal pain Narrative: 59-year-old male with PMH hypertension presents to [facility] ER on 01/22/2025 with lower abdominal pain since 4 days prior. Associated abdominal bloating and nausea. He is having bowel movements, no diarrhea, no vomiting, no rectal bleeding, no melena. Feels as if a takes long time to defecate, sitting on the toilet for longer than usual. Patient went to [facility] and had a CT scan of abdomen pelvis which showed a perforated sigmoid diverticulitis with adjacent abscess. General surgery consulted from ER. Plan for percutaneous drain in the a.m.. Patient given Zosyn and 1 L normal saline. He was resting comfortably thereafter. WBC 12,000, serum creatinine 1.01. Blood cultures time to obtain. Review of Systems Review of Systems: All systems reviewed & are unremarkable except as noted in HPI and below (Subjective) [facility] Social History Social History Smoking status: Never smoker Second hand tobacco smoke exposure: No Alcohol intake: current Drinks per week: 4 Substance use: never Lack of Transportation: No Lack of Food: Never True Current Housing: I Have Housing Concerned About Future Housing: No Difficulty Paying Gas/Electric Bills: No Difficulty Paying for Meds: No Currently Unemployed: No Education: Bachelor's Degree Difficulty w/ Childcare or Family Care: No Spiritual care concerns: No Meds Home Medications and Allergies Home Medications ?Medication ?Instructions ?Recorded ?Confirmed ?Type multivitamin 1 tablet PO DAILY 06/04/19 01/23/25 History amlodipine 5 mg tablet 5 mg PO DAILY #90 tabs 01/24/22 01/23/25 Rx rosuvastatin 5 mg tablet (Crestor) 5 mg PO DAILY #90 tabs 02/10/22 01/23/25 Rx candesartan 32 mg tablet See Rx Instructions .Route 06/07/22 01/23/25 Rx .COMPLEX #90 tabs Allergies Allergy/AdvReac Type Severity Reaction Status Date / Time propoxyphene Allergy Intermediate HIVES Verified 01/23/25 01:39 Vital Signs Vital Signs - 24 hr 01/22/25 20:08 01/22/25 21:29 01/22/25 21:30 Temperature 97.4 F L Pulse Rate 87 81 86 Respiratory Rate 20 20 20 Blood Pressure 133/83 134/77 Pulse Oximetry 98 98 98 Oxygen Delivery 01/22/25 21:31 01/22/25 21:32 01/22/25 21:45 Temperature Pulse Rate 85 80 82 Respiratory Rate 18 18 25 H Blood Pressure 126/80 Pulse Oximetry 98 98 99 Oxygen Delivery 01/22/25 21:46 01/22/25 22:00 01/22/25 22:01 Temperature Pulse Rate 85 81 81 Respiratory Rate 22 H 19 21 H Blood Pressure 141/85 H 124/69 Pulse Oximetry 98 99 99 Oxygen Delivery 01/22/25 22:55 01/22/25 22:56 01/22/25 23:00 Temperature Pulse Rate 89 87 84 Respiratory Rate 21 H 20 Blood Pressure 141/84 H Pulse Oximetry 100 97 Oxygen Delivery 01/22/25 23:01 01/22/25 23:15 01/22/25 23:16 Temperature Pulse Rate 89 85 84 Respiratory Rate 21 H 19 20 Blood Pressure 135/79 129/76 Pulse Oximetry 99 98 99 Oxygen Delivery 01/22/25 23:30 01/22/25 23:31 01/22/25 23:45 Temperature Pulse Rate 86 88 86 Respiratory Rate 18 23 H 22 H Blood Pressure 148/84 H Pulse Oximetry 98 99 98 Oxygen Delivery 01/22/25 23:46 01/23/25 00:00 01/23/25 00:01 Temperature Pulse Rate 85 85 83 Respiratory Rate 22 H 21 H 21 H Blood Pressure 131/79 126/74 Pulse Oximetry 98 96 97 Oxygen Delivery 01/23/25 00:15 01/23/25 00:16 01/23/25 00:30 Temperature Pulse Rate 84 90 87 Respiratory Rate 19 21 H 17 Blood Pressure 132/71 Pulse Oximetry 98 98 98 Oxygen Delivery 01/23/25 00:31 01/23/25 00:45 01/23/25 00:46 Temperature Pulse Rate 85 82 76 Respiratory Rate 22 H 21 H 22 H Blood Pressure 125/77 115/64 Pulse Oximetry 98 97 97 Oxygen Delivery 01/23/25 01:00 01/23/25 01:01 01/23/25 01:15 Temperature Pulse Rate 83 81 86 Respiratory Rate 19 19 22 H Blood Pressure 116/68 Pulse Oximetry 98 98 98 Oxygen Delivery 01/23/25 01:16 01/23/25 01:48 01/23/25 02:05 Temperature 98.1 F Pulse Rate 78 88 Respiratory Rate 20 16 Blood Pressure 113/66 128/94 H Pulse Oximetry 99 100 Oxygen Delivery Room Air 01/23/25 05:13 Temperature 98.9 F Pulse Rate 80 Respiratory Rate 16 Blood Pressure 118/70 Pulse Oximetry 99 Oxygen Delivery Exam Const: General: comfortable and no acute distress Other: A&O x3 HENMT: Mouth: Yes moist mucous membranes Eyes: Pupils: Equal, round and reactive pupils present Neck: Neck: supple Resp: Effort & Inspection: normal respiratory effort Auscultation: clear to auscultation bilaterally Cardio: Rate: regular rate Rhythm: regular rhythm GI: GI Palp: Yes Soft to palpation and No Guarding due to palpation present (GI) Other: Mild tenderness Extrem: General: no edema H&P: Results Labs Labs: Short CBC 01/22/25 Range/Units 21:21 WBC 12.0 H (4.5-10.0) K/mm3 Hgb 15.8 (14.0-18.0) g/dL Hct 45.3 (42.0-52.0) % Plt Count 226 (150-375) k/mm3 BMP 01/22/25 21:21 Sodium 137 Potassium 4.4 Chloride 101 Carbon Dioxide 26 BUN 20 Creatinine 1.01 Glucose 125 H Calcium 9.4 Liver Function 01/22/25 Range/Units 21:21 Total Bilirubin 1.7 H (0.2-1.3) mg/dL AST 26 (17-59) U/L ALT 20 (6-50) U/L Alkaline Phosphatase 58 (38-126) U/L Albumin 4.2 (3.5-5.1) g/dL Urine 01/22/25 Range/Units 22:53 Urine Color Yellow (Yellow) Urine Appearance Clear (Clear) Urine pH 6.0 (5.0-9.0) Ur Specific [place] > 1.045 H (1.001-1.035) Urine Protein 1+ H (Negative) mg/dL Urine Glucose (UA) Negative (Negative) mg/dL Assessment and Plan Assessment and plan (1) Essential (primary) hypertension: Code(s): I10 - Essential (primary) hypertension Status: Acute (2) Abscess of sigmoid colon due to diverticulitis: Code(s): K57.20 - Diverticulitis of large intestine with perforation and abscess without bleeding Status: Acute (3) Perforation of sigmoid colon due to diverticulitis: Code(s): K57.20 - Diverticulitis of large intestine with perforation and abscess without bleeding Status: Acute Plan 59-year-old male with PMH hypertension presents to [facility] ER on 01/22/2025 with lower abdominal pain since 4 days prior. Associated abdominal bloating and nausea. He is having bowel movements, no diarrhea, no vomiting, no rectal bleeding, no melena. Feels as if a takes long time to defecate, sitting on the toilet for longer than usual. Patient went to [facility] and had a CT scan of abdomen pelvis which showed a perforated sigmoid diverticulitis with adjacent abscess. General surgery consulted from ER. Plan for percutaneous drain in the a.m.. Patient given Zosyn and 1 L normal saline. He was resting comfortably thereafter. WBC 12,000, serum creatinine 1.01. Blood cultures time to obtain. ---- Continue Zosyn. Trend leukocytosis. Follow-up blood culture. Normal saline at 125 cc/hour. Orthopedic surgery consultation. NPO. SCDs. Full code. Hospitalist MIPS Advance Care Plan I have confirmed that the patient's Advanced Care Plan is present, code status is documented, or surrogate decision maker is listed in patient medical record.: Yes Medication Reconciliation I have utilized all available resources to obtain, update and review the patients current medications (includes all prescriptions, OTC, herbals, cannabis, and nutritional supplements).: Yes
[2025-01-23 05:53] LABS: Hematocrit 39.6 % (42.0-52.0); Hemoglobin 13.6 g/dL (14.0-18.0); Immature Granulocyte Percent A 0.2 % (0-0.5); Lymphocytes Absolute Auto 0.98 K/mm3 (0.9-3.2); Mean Corpuscular HGB Conc 34.3 g/dl (32-36); Mean Corpuscular Hemoglobin 31.0 pg (26-34); Mean Corpuscular Volume 90.2 fl (80-100); Nucleated Red Blood Cells Absolute Auto 0.000 K/mm3 (0.0-0.012); Nucleated Red Blood Cells Perc 0.0 % (0.0-0.2); Platelet Count Result 200 k/mm3 (150-375); Red Blood Count 4.39 M/mm3 (4.6-6.20); White Blood Count 9.5 K/mm3 (4.5-10.0)
[2025-01-23 06:02] LABS: INR 1.3; Prothrombin Time 15.7 Seconds (11.1-14.7)
[2025-01-23 06:11] LABS: Alanine Aminotransferase 15 U/L (6-50); Albumin Level 3.3 g/dL (3.5-5.1); Alkaline Phosphatase 53 U/L (38-126); Anion Gap 6 mmol/L (4-12); Aspartate Amino Transferase 21 U/L (17-59); Bilirubin,Total 1.3 mg/dL (0.2-1.3); Blood Urea Nitrogen 18 mg/dL (9-20); Calcium 8.3 mg/dL (8.4-10.2); Carbon Dioxide 23 mmol/L (22-30); Chloride 105 mmol/L (98-107); Estimated CRCL calculation 72 ml/min; Estimated Glomerular Filt Rate > 60; Glucose 108 mg/dL (65-110); Magnesium 2.2 mg/dL (1.6-2.3); Potassium 4.4 mmol/L (3.4-5.0); Sodium 134 mmol/L (137-145); Total Protein 6.2 g/dL (6.3-8.2)
[2025-01-23 06:17] LABS: Procalcitonin 0.1 ng/mL
--- NOTE | 2025-01-23 07:35 | PM.IMPN ---
Progress Note: A&P Assessment and Plan (1) Abscess of sigmoid colon due to diverticulitis: Code(s): K57.20 - Diverticulitis of large intestine with perforation and abscess without bleeding Status: Acute Assessment and Plan: Patient went to [facility] and had a CT scan of abdomen pelvis which showed a perforated sigmoid diverticulitis with adjacent abscess, directed to come to the hospital at that time. - Antibiotics: Zosyn 3.375 g IV q6H started on 01/22 - Gentle IV fluid resuscitation - Diet: NPO for procedure, advance per surgery following procedure - Fluids: received 1L bolus in the ED and was started on 125 ml/hr on 01/23. - Blood cultures pending - Monitor vital signs, I&Os, track stool output, watch for bloody stools, neuro status and patient is a fall risk - Monitor serum electrolytes and CBC - General surgery consulted Plan for percutaneous drain today (2) Essential (primary) hypertension: Code(s): I10 - Essential (primary) hypertension Status: Acute Assessment and Plan: Chronic - holding amlodipine 5 mg and candesartan 32 mg, resume as appropriate when no longer NPO - blood pressures reviewed and stable, continue to monitor Time Spent With Patient Time with patient: 25 - 35 minutes Subjective Date/time seen: 01/23/25 07:35 Interval history: 59-year-old male with PMH of hypertension presents to the hospital on 01/22/2025 with lower abdominal pain for the past 4 days. Patient went to [facility] and had a CT scan of abdomen pelvis which showed a perforated sigmoid diverticulitis with adjacent abscess, directed to come to the hospital at that time. Patient is pleasant sitting up comfortably in bed. He endorses slight lower abdominal pain but denies any associated nausea/vomiting. He also denies any blood in stool. He has no other complaints denying chest pain, palpitations, shortness of breath. Review of Systems Review of Systems: All systems reviewed & are unremarkable except as noted in HPI and below (Subjective) Exam Narrative: AF HR 80 RR 16 SpO2 99 BP 118/70 General: male in no acute respiratory distress who is nontoxic appearing, lying semi recumbent in bed. HEENT: Normocephalic. Atraumatic. Extraocular movement intact. Sclera clear and anicteric. No facial asymmetry. Chest: Lungs are clear to auscultation bilaterally. No wheezes or crackles. CV: Heart was regular rate and rhythm. Abd: Abdomen was soft. Mild tenderness to lower abdomen without guarding. Nondistended. Positive bowel sounds. Ext: No clubbing, cyanosis, or edema. DP pulses bilaterally. Neuro: Patient is alert. Speech is clear. Objective Data Vital Signs Vital Signs: Vital Signs - 24 hr 01/22/25 20:08 01/22/25 21:29 01/22/25 21:30 Temperature 97.4 F L Pulse Rate 87 81 86 Respiratory Rate 20 20 20 Blood Pressure 133/83 134/77 Pulse Oximetry 98 98 98 Oxygen Delivery 01/22/25 21:31 01/22/25 21:32 01/22/25 21:45 Temperature Pulse Rate 85 80 82 Respiratory Rate 18 18 25 H Blood Pressure 126/80 Pulse Oximetry 98 98 99 Oxygen Delivery 01/22/25 21:46 01/22/25 22:00 01/22/25 22:01 Temperature Pulse Rate 85 81 81 Respiratory Rate 22 H 19 21 H Blood Pressure 141/85 H 124/69 Pulse Oximetry 98 99 99 Oxygen Delivery 01/22/25 22:55 01/22/25 22:56 01/22/25 23:00 Temperature Pulse Rate 89 87 84 Respiratory Rate 21 H 20 Blood Pressure 141/84 H Pulse Oximetry 100 97 Oxygen Delivery 01/22/25 23:01 01/22/25 23:15 01/22/25 23:16 Temperature Pulse Rate 89 85 84 Respiratory Rate 21 H 19 20 Blood Pressure 135/79 129/76 Pulse Oximetry 99 98 99 Oxygen Delivery 01/22/25 23:30 01/22/25 23:31 01/22/25 23:45 Temperature Pulse Rate 86 88 86 Respiratory Rate 18 23 H 22 H Blood Pressure 148/84 H Pulse Oximetry 98 99 98 Oxygen Delivery 01/22/25 23:46 01/23/25 00:00 01/23/25 00:01 Temperature Pulse Rate 85 85 83 Respiratory Rate 22 H 21 H 21 H Blood Pressure 131/79 126/74 Pulse Oximetry 98 96 97 Oxygen Delivery 01/23/25 00:15 01/23/25 00:16 01/23/25 00:30 Temperature Pulse Rate 84 90 87 Respiratory Rate 19 21 H 17 Blood Pressure 132/71 Pulse Oximetry 98 98 98 Oxygen Delivery 01/23/25 00:31 01/23/25 00:45 01/23/25 00:46 Temperature Pulse Rate 85 82 76 Respiratory Rate 22 H 21 H 22 H Blood Pressure 125/77 115/64 Pulse Oximetry 98 97 97 Oxygen Delivery 01/23/25 01:00 01/23/25 01:01 01/23/25 01:15 Temperature Pulse Rate 83 81 86 Respiratory Rate 19 19 22 H Blood Pressure 116/68 Pulse Oximetry 98 98 98 Oxygen Delivery 01/23/25 01:16 01/23/25 01:48 01/23/25 02:05 Temperature 98.1 F Pulse Rate 78 88 Respiratory Rate 20 16 Blood Pressure 113/66 128/94 H Pulse Oximetry 99 100 Oxygen Delivery Room Air 01/23/25 05:13 Temperature 98.9 F Pulse Rate 80 Respiratory Rate 16 Blood Pressure 118/70 Pulse Oximetry 99 Oxygen Delivery Intake/Output Intake/Output: Intake & Output 01/20/25 01/21/25 01/22/25 01/23/25 23:59 23:59 23:59 23:59 Intake Total 200 Balance 200 Meds/Results Medications: Active Medications Generic Name Dose Route Start Last Admin Trade Name Freq PRN Reason Stop Dose Admin Acetaminophen 650 mg 01/23/25 00:35 Acetaminophen 325 Mg Tablet PO Q4H PRN Mild Pain (1-3) or Fever Piperacillin Sod/Tazobactam 50 mls @ 100 mls/hr 01/23/25 06:00 01/23/25 05:59 Sod 3.375 gm/ Sodium Chloride IVPB Infused Q6H MERRILL Infusion Sodium Chloride 1,000 mls @ 125 mls/hr 01/23/25 00:35 01/23/25 03:25 Normal Saline Iv IV CONT 125 mls/hr .Q8H MERRILL Administration Morphine Sulfate 4 mg 01/23/25 00:35 Morphine Sulfate (*Crx) 4 Mg/Ml Inj IV PUSH Q2H PRN Pain Rated 7-10 Ondansetron HCl 4 mg 01/23/25 00:35 Ondansetron Inj 4 Mg/2 Ml Vial IV PUSH Q4H PRN Nausea Labs Labs: Laboratory Results - last 24 hr 01/22/25 01/22/25 01/22/25 21:21 21:46 22:53 WBC 12.0 H RBC 5.09 Hgb 15.8 Hct 45.3 MCV 89.0 MCH 31.0 MCHC 34.9 RDW 12.7 Plt Count 226 MPV 8.8 Immature Gran % (Auto) 0.6 H Neut % (Auto) 85.9 H Lymph % (Auto) 5.9 L [place] % (Auto) 7.0 Eos % (Auto) 0.5 Baso % (Auto) 0.1 L Lymph # (Auto) 0.71 L [place] # (Auto) 0.8 H Eos # (Auto) 0.1 Baso # (Auto) 0.0 Abs Immat Gran (auto) 0.07 H Absolute Neuts (auto) 10.3 H Absolute Nucleated RBC 0.000 Nucleated RBC % 0.0 PT INR Sodium 137 Potassium 4.4 Chloride 101 Carbon Dioxide 26 Anion Gap 10 BUN 20 Creatinine 1.01 Estim Creat Clear Calc 65 Estimated GFR > 60 Glucose 125 H Lactic Acid 1.2 Calcium 9.4 Magnesium Total Bilirubin 1.7 H AST 26 ALT 20 Alkaline Phosphatase 58 Total Protein 7.6 Albumin 4.2 Lipase 36 Procalcitonin Urine Color Yellow Urine Appearance Clear Urine pH 6.0 Ur Specific [place] > 1.045 H Urine Protein 1+ H Urine Glucose (UA) Negative Urine Ketones 2+ H Ur Blood (Man) Negative Urine Nitrate Negative Urine Bilirubin Negative Urine Urobilinogen 1.0 Leukocyte Esterase Rfl Negative Urine RBC 0-2 Urine WBC 0-5 Ur Squamous Epith Cells None seen Urine Bacteria None seen 01/23/25 05:41 WBC 9.5 RBC 4.39 L Hgb 13.6 L Hct 39.6 L MCV 90.2 MCH 31.0 MCHC 34.3 RDW 12.6 Plt Count 200 MPV 8.8 Immature Gran % (Auto) 0.2 Neut % (Auto) 79.4 H Lymph % (Auto) 10.3 L [place] % (Auto) 8.0 Eos % (Auto) 1.8 Baso % (Auto) 0.3 Lymph # (Auto) 0.98 [place] # (Auto) 0.8 H Eos # (Auto) 0.2 Baso # (Auto) 0.0 Abs Immat Gran (auto) 0.02 Absolute Neuts (auto) 7.6 H Absolute Nucleated RBC 0.000 Nucleated RBC % 0.0 PT 15.7 H INR 1.3 Sodium 134 L Potassium 4.4 Chloride 105 Carbon Dioxide 23 Anion Gap 6 BUN 18 Creatinine 0.91 Estim Creat Clear Calc 72 Estimated GFR > 60 Glucose 108 Lactic Acid Calcium 8.3 L Magnesium 2.2 Total Bilirubin 1.3 AST 21 ALT 15 Alkaline Phosphatase 53 Total Protein 6.2 L Albumin 3.3 L Lipase Procalcitonin 0.1 Urine Color Urine Appearance Urine pH Ur Specific [place] Urine Protein Urine Glucose (UA) Urine Ketones Ur Blood (Man) Urine Nitrate Urine Bilirubin Urine Urobilinogen Leukocyte Esterase Rfl Urine RBC Urine WBC Ur Squamous Epith Cells Urine Bacteria Quality VTE Prophylaxis VTE prophylaxis: mechanical ordered
--- NOTE | 2025-01-23 08:27 | P.CONGS_ITS ---
Assessment and Plan Assessment and plan (1) Perforation of sigmoid colon due to diverticulitis: Code(s): K57.20 - Diverticulitis of large intestine with perforation and abscess without bleeding <Sahil Vargas, DO - Last Filed: 01/23/25 08:37> Status: Acute <Sahil Vargas, DO - Last Filed: 01/23/25 08:37> Assessment and Plan: Patient presented with 5 x 4 cm abscess due to perforated diverticulitis. His WBC has trended down to normal. His abdominal exam is fairly benign, he is minimally tender to palpation in the lower abdomen. No peritoneal signs. VSS. Afebrile. His last colonoscopy was 9 years, FMH unknown, no changes in bowel habits besides this past week. We will plan to order a perc drain. Patient NPO for now, continue IV ABX. No acute surgical intervention at this time. Surgery will follow. Please see attending attestation for further plan and updates <Sahil Vargas, DO - Last Filed: 01/23/25 08:37> Patient presented with 5 x 4 cm abscess due to perforated diverticulitis. His WBC has trended down to normal. His abdominal exam is fairly benign, he is minimally tender to palpation in the lower abdomen. No peritoneal signs. VSS. Afebrile. His last colonoscopy was 9 years, FMH unknown, no changes in bowel habits besides this past week. We will plan to order a perc drain. Patient NPO for now, continue IV ABX. No acute surgical intervention at this time. Surgery will follow. Please see attending attestation for further plan and updates I have personally seen and evaluated the patient today with surgery resident.? ? I have reviewed any new relevant radiographic and laboratory results.? I have reviewed the rodríguez elements of the patient's current surgical or medical problems and I have personally performed a substantive portion of the care for this patient.? I personally performed the pertinent physical exam and reviewed and confirmed the patient's medicine list.? ? I have formulated the surgical care plan and I agree with the documented note above. Patient with 5x4cm pelvic abscess due to acute sigmoid diverticulitis. Nontoxic. No obvious acute surgical abdomen on exam by me. Mild leukocytosis. Continue IV antibiotics. Will ask Interventional Radiology to drain the pelvic abscess percutaneously under CT guidance. Will follow. <Marquez Saldaña MD - Last Filed: 01/23/25 13:03> (2) Abscess of sigmoid colon due to diverticulitis: Code(s): K57.20 - Diverticulitis of large intestine with perforation and abscess without bleeding <Sahil Vargas, DO - Last Filed: 01/23/25 08:37> Status: Acute <Sahil Vargas, DO - Last Filed: 01/23/25 08:37> (3) Essential (primary) hypertension: Code(s): I10 - Essential (primary) hypertension <Sahil Vargas DO - Last Filed: 01/23/25 08:37> Status: Acute <Sahil Vargas DO - Last Filed: 01/23/25 08:37> History of Present Illness Consult details Consult date: 01/23/25 <Sahil Vargas DO - Last Filed: 01/23/25 08:37> 01/23/25 <Marquez Saldaña MD - Last Filed: 01/23/25 13:03> Narrative: Patient is a 59 yo adopted male with a PMH of HTN who presented to the hospital complaining of abdominal pain and nausea that started on Monday. The patient reports he has never had this before. He has never had intraabdominal surgery. He is healthy and active. He denies fevers or chills. Does reports some fatigue and generally feeling unwell this past week. His last colonoscopy was 9 years ago and was normal at that time. He denies recent changes in bowel habits, melena, or hematochezia. He presented to urgent care and had a CTAP which showed perforated diverticulitis with an air fluid collection measuring 5 X 4 cm. His WBC was 12 and is now 9. On exam, he is minimally TTP in lower abdomen, ND, nonperitoneal. VSS. Afebrile. <Sahil VargasDO - Last Filed: 01/23/25 08:37> Review of Systems 2 Review of Systems: All systems reviewed & are unremarkable except as noted in HPI and below (Subjective) <Sahil VargasDO - Last Filed: 01/23/25 08:37> [facility] Social History Social History: Social History Smoking status: Never smoker Second hand tobacco smoke exposure: No Alcohol intake: current Drinks per week: 4 Substance use: never Lack of Transportation: No Lack of Food: Never True Current Housing: I Have Housing Concerned About Future Housing: No Difficulty Paying Gas/Electric Bills: No Difficulty Paying for Meds: No Currently Unemployed: No Education: Bachelor's Degree Difficulty w/ Childcare or Family Care: No Spiritual care concerns: No <Sahil Vargas, DO - Last Filed: 01/23/25 08:37> Meds Home Medications and Allergies Home medications: Home Medications ?Medication ?Instructions ?Recorded ?Confirmed ?Type multivitamin 1 tablet PO DAILY 06/04/19 1 03/25/24 History amlodipine 5 mg tablet 5 mg PO DAILY #90 tabs 01/2401/23/25 Rx rosuvastatin 5 mg tablet (Crestor) 5 mg PO DAILY #90 t abs 02/10/22 01/23/25 Rx candesartan 32 mg tablet See Rx Instructions .Route 0 06/07/22 01/23/25 Rx .COMPLEX #90 tabs <Sahil Vargas, DO - Last Filed: 01/23/25 08:37> Allergies/Adverse reactions: Allergies Allergy/AdvReac Type Severity Reaction Status Date / Time propoxyphene Allergy Intermediate HIVES Verified 01/23/25 01:39 <Sahil Vargas, DO - Last Filed: 01/23/25 08:37> Vital Signs Vital Signs - 24 hr 01/22/25 20:08 01/22/25 21:29 01/22/25 21:30 Temperature 97.4 F L Pulse Rate 87 81 86 Respiratory Rate 20 20 20 Blood Pressure 133/83 134/77 Pulse Oximetry 98 98 98 Oxygen Delivery 01/22/25 21:31 01/22/25 21:32 01/22/25 21:45 Temperature Pulse Rate 85 80 82 Respiratory Rate 18 18 25 H Blood Pressure 126/80 Pulse Oximetry 98 98 99 Oxygen Delivery 01/22/25 21:46 01/22/25 22:00 01/22/25 22:01 Temperature Pulse Rate 85 81 81 Respiratory Rate 22 H 19 21 H Blood Pressure 141/85 H 124/69 Pulse Oximetry 98 99 99 Oxygen Delivery 01/22/25 22:55 01/22/25 22:56 01/22/25 23:00 Temperature Pulse Rate 89 87 84 Respiratory Rate 21 H 20 Blood Pressure 141/84 H Pulse Oximetry 100 97 Oxygen Delivery 01/22/25 23:01 01/22/25 23:15 01/22/25 23:16 Temperature Pulse Rate 89 85 84 Respiratory Rate 21 H 19 20 Blood Pressure 135/79 129/76 Pulse Oximetry 99 98 99 Oxygen Delivery 01/22/25 23:30 01/22/25 23:31 01/22/25 23:45 Temperature Pulse Rate 86 88 86 Respiratory Rate 18 23 H 22 H Blood Pressure 148/84 H Pulse Oximetry 98 99 98 Oxygen Delivery 01/22/25 23:46 01/23/25 00:00 01/23/25 00:01 Temperature Pulse Rate 85 85 83 Respiratory Rate 22 H 21 H 21 H Blood Pressure 131/79 126/74 Pulse Oximetry 98 96 97 Oxygen Delivery 01/23/25 00:15 01/23/25 00:16 01/23/25 00:30 Temperature Pulse Rate 84 90 87 Respiratory Rate 19 21 H 17 Blood Pressure 132/71 Pulse Oximetry 98 98 98 Oxygen Delivery 01/23/25 00:31 01/23/25 00:45 01/23/25 00:46 Temperature Pulse Rate 85 82 76 Respiratory Rate 22 H 21 H 22 H Blood Pressure 125/77 115/64 Pulse Oximetry 98 97 97 Oxygen Delivery 01/23/25 01:00 01/23/25 01:01 01/23/25 01:15 Temperature Pulse Rate 83 81 86 Respiratory Rate 19 19 22 H Blood Pressure 116/68 Pulse Oximetry 98 98 98 Oxygen Delivery 01/23/25 01:16 01/23/25 01:48 01/23/25 02:05 Temperature 98.1 F Pulse Rate 78 88 Respiratory Rate 20 16 Blood Pressure 113/66 128/94 H Pulse Oximetry 99 100 Oxygen Delivery Room Air 01/23/25 05:13 Temperature 98.9 F Pulse Rate 80 Respiratory Rate 16 Blood Pressure 118/70 Pulse Oximetry 99 Oxygen Delivery <Sahil Candy. Vargas, DO - Last Filed: 01/23/25 08:37> Exam 2 Const: General: healthy appearing, no acute distress, alert and awake < Sahil E. Vargas, DO - Last Filed: 01/23/25 08:37> HENMT: Head: normocephalic and atraumatic <Sahil E. Vargas, DO - Last Filed: 01/23/25 08:37> Eyes: Sclera: sclerae normal <Sahil E. Vargas, DO - Last Filed: 01/23/25 08:37> EOM: EOMs intact bilaterally <Sahil E. Vargas, DO - Last Filed: 01/23/25 08:37> Neck: Neck: normal visual inspection, no lymphadenopathy and no JVD <Sahil E. Vargas, DO - Last Filed: 01/23/25 08:37> Resp: Other: symmetric expansion, no IWOB, on RA <Sahil E. Vargas, DO - Last Filed: 01/23/25 08:37> Cardio: Rate: regular rate <Sahil E. Vargas, DO - Last Filed: 01/23/25 08:37> Rhythm: regular rhythm <Sahil E. Vargas, DO - Last Filed: 01/23/25 08:37> GI: Other: Soft, minimally TTP in lower abdomen, NT, nonperitoneal <Sahil E. Vargas, DO - Last Filed: 01/23/25 08:37> Skin: General skin exam: normal color and turgor normal <Sahil E. Vargas, DO - Last Filed: 01/23/25 08:37> Neuro: General: patient oriented x3 and moves all extremities <Sahil E. Vargas, DO - Last Filed: 01/23/25 08:37> Extrem: General: normal to inspection and no pedal edema <Sahil E. Vargas, DO - Last Filed: 01/23/25 08:37> Psych: Appearance: grossly normal and well kempt <Sahil E. Vargas, DO - Last Filed: 01/23/25 08:37> Mental Status: mental status grossly normal <Sahil E. Vargas, DO - Last Filed: 01/23/25 08:37> Speech and movement: Normal speech and movement present <Sahil E. Vargas, DO - Last Filed: 01/23/25 08:37> Affect: normal affect <Sahil E. Vargas, DO - Last Filed: 01/23/25 08:37> Attitude: cooperative <Sahil E. Vargas, DO - Last Filed: 01/23/25 08:37> Thought process: Normal thought process present <Sahil E. Vargas, DO - Last Filed: 01/23/25 08:37> Results Labs Result diagrams: 01/23/25 05:41 01/23/25 05:41 <Sahil Vargas, DO - Last Filed: 01/23/25 08:37> Labs: Abnormal lab results 01/22/25 01/22/25 01/23/25 Range/Units 21:21 22:53 05:41 WBC 12.0 H (4.5-10.0) K/mm3 RBC 4.39 L (4.6-6.20) M/mm3 Hgb 13.6 L (14.0-18.0) g/dL Hct 39.6 L (42.0-52.0) % Immature Gran % (Auto) 0.6 H (0-0.5) % Neut % (Auto) 85.9 H 79.4 H (45.5-73.1) % Lymph % (Auto) 5.9 L 10.3 L (18.3-44.2) % Baso % (Auto) 0.1 L (0.2-1.2) % Lymph # (Auto) 0.71 L (0.9-3.2) K/mm3 [place] # (Auto) 0.8 H 0.8 H (0.1-0.6) K/mm3 Abs Immat Gran (auto) 0.07 H (0.00-0.031) K/mm3 Absolute Neuts (auto) 10.3 H 7.6 H (1.3-6.7) K/mm3 PT 15.7 H (11.1-14.7) Seconds Sodium 134 L (137-145) mmol/L Glucose 125 H (65-110) mg/dL Calcium 8.3 L (8.4-10.2) mg/dL Total Bilirubin 1.7 H (0.2-1.3) mg/dL Total Protein 6.2 L (6.3-8.2) g/dL Albumin 3.3 L (3.5-5.1) g/dL Ur Specific [place] > 1.045 H (1.001-1.035) Urine Protein 1+ H (Negative) mg/dL Urine Ketones 2+ H (Negative) mg/dL Diabetes panel 01/22/25 01/23/25 Range/Units 21:21 05:41 Sodium 137 134 L (137-145) mmol/L Potassium 4.4 4.4 (3.4-5.0) mmol/L Chloride 101 105 (98-107) mmol/L Carbon Dioxide 26 23 (22-30) mmol/L BUN 20 18 (9-20) mg/dL Creatinine 1.01 0.91 (0.7-1.3) mg/dL Glucose 125 H 108 (65-110) mg/dL Calcium 9.4 8.3 L (8.4-10.2) mg/dL AST 26 21 (17-59) U/L ALT 20 15 (6-50) U/L Alkaline Phosphatase 58 53 (38-126) U/L Total Protein 7.6 6.2 L (6.3-8.2) g/dL Albumin 4.2 3.3 L (3.5-5.1) g/dL Calcium panel 01/22/25 01/23/25 Range/Units 21:21 05:41 Calcium 9.4 8.3 L (8.4-10.2) mg/dL Albumin 4.2 3.3 L (3.5-5.1) g/dL Pituitary panel 01/22/25 01/23/25 Range/Units 21:21 05:41 Sodium 137 134 L (137-145) mmol/L Potassium 4.4 4.4 (3.4-5.0) mmol/L Chloride 101 105 (98-107) mmol/L Carbon Dioxide 26 23 (22-30) mmol/L BUN 20 18 (9-20) mg/dL Creatinine 1.01 0.91 (0.7-1.3) mg/dL Glucose 125 H 108 (65-110) mg/dL Calcium 9.4 8.3 L (8.4-10.2) mg/dL Adrenal panel 01/22/25 01/23/25 Range/Units 21:21 05:41 Sodium 137 134 L (137-145) mmol/L Potassium 4.4 4.4 (3.4-5.0) mmol/L Chloride 101 105 (98-107) mmol/L Carbon Dioxide 26 23 (22-30) mmol/L BUN 20 18 (9-20) mg/dL Creatinine 1.01 0.91 (0.7-1.3) mg/dL Glucose 125 H 108 (65-110) mg/dL Calcium 9.4 8.3 L (8.4-10.2) mg/dL Total Bilirubin 1.7 H 1.3 (0.2-1.3) mg/dL AST 26 21 (17-59) U/L ALT 20 15 (6-50) U/L Alkaline Phosphatase 58 53 (38-126) U/L Total Protein 7.6 6.2 L (6.3-8.2) g/dL Albumin 4.2 3.3 L (3.5-5.1) g/dL All other labs normal. <Sahil Vargas, DO - Last Filed: 01/23/25 08:37> Imaging Abdomen CT scan report/results: report reviewed and image reviewed <Sahil Vargas, DO - Last Filed: 01/23/25 08:37>
[2025-01-23] MEDS: fentaNYL CITRATE INJ (*CRX) 100 MCG/2 ML VIAL 50 MCG IV PUSH (11:38)
--- NOTE | 2025-01-23 12:09 | WPDMODSED ---
Moderate Sedation Note-Pt Data Patient Data Diagnosis: perforated diverticulitis with abscess Present Complaint: abscess Procedure to be performed/Plan: percutaneous abscess drain placement Allergies Allergy/AdvReac Type Severity Reaction Status Date / Time propoxyphene Allergy Intermediate HIVES Verified 01/23/25 01:39 Home Medications ?Medication ?Instructions ?Recorded ?Confirmed ?Type multivitamin 1 tablet PO DAILY 06/04/19 01/23/25 History amlodipine 5 mg tablet 5 mg PO DAILY #90 tabs 01/24/22 01/23/25 Rx rosuvastatin 5 mg tablet (Crestor) 5 mg PO DAILY #90 tabs 02/10/22 01/23/25 Rx candesartan 32 mg tablet See Rx Instructions .Route 06/07/22 01/23/25 Rx .COMPLEX #90 tabs Current Medications: Active Medications Acetaminophen (Acetaminophen 325 Mg Tablet) 650 mg PO Q4H PRN PRN Reason: Mild Pain (1-3) or Fever Piperacillin Sod/Tazobactam (Sod 3.375 gm/ Sodium Chloride) 50 mls @ 100 mls/hr IVPB Q6H [facility] Last Infusion: 01/23/25 05:59 Dose: Infused Sodium Chloride (Normal Saline Iv) 1,000 mls @ 125 mls/hr IV CONT .Q8H [facility] Last Admin: 01/23/25 03:25 Dose: 125 mls/hr Morphine Sulfate (Morphine Sulfate (*Crx) 4 Mg/Ml Inj) 4 mg IV PUSH Q2H PRN PRN Reason: Pain Rated 7-10 Ondansetron HCl (Ondansetron Inj 4 Mg/2 Ml Vial) 4 mg IV PUSH Q4H PRN PRN Reason: Nausea Sedation/Anesthesia: No previous sedation/anesthesia problems (including family history). [facility] Social History Social History Smoking status: Never smoker Second hand tobacco smoke exposure: No Alcohol intake: current Drinks per week: 4 Substance use: never Lack of Transportation: No Lack of Food: Never True Current Housing: I Have Housing Concerned About Future Housing: No Difficulty Paying Gas/Electric Bills: No Difficulty Paying for Meds: No Currently Unemployed: No Education: Bachelor's Degree Difficulty w/ Childcare or Family Care: No Spiritual care concerns: No Mod Sed Physical Exam Physical Exam Pre Procedural Exam: Normal: Appearance, Throat, Lungs, Heart Rate and Heart Rhythm Hours since solid foods: 12 Hours since liquid intake: 12 Mallampati Classification: class III Internal Medicine - PN: Obj Da Vital Signs Vital Signs: Vital Signs - 24 hr 01/22/25 20:08 01/22/25 21:29 01/22/25 21:30 Temperature 97.4 F L Pulse Rate 87 81 86 Respiratory Rate 20 20 20 Blood Pressure 133/83 134/77 Pulse Oximetry 98 98 98 Oxygen Delivery 01/22/25 21:31 01/22/25 21:32 01/22/25 21:45 Temperature Pulse Rate 85 80 82 Respiratory Rate 18 18 25 H Blood Pressure 126/80 Pulse Oximetry 98 98 99 Oxygen Delivery 01/22/25 21:46 01/22/25 22:00 01/22/25 22:01 Temperature Pulse Rate 85 81 81 Respiratory Rate 22 H 19 21 H Blood Pressure 141/85 H 124/69 Pulse Oximetry 98 99 99 Oxygen Delivery 01/22/25 22:55 01/22/25 22:56 01/22/25 23:00 Temperature Pulse Rate 89 87 84 Respiratory Rate 21 H 20 Blood Pressure 141/84 H Pulse Oximetry 100 97 Oxygen Delivery 01/22/25 23:01 01/22/25 23:15 01/22/25 23:16 Temperature Pulse Rate 89 85 84 Respiratory Rate 21 H 19 20 Blood Pressure 135/79 129/76 Pulse Oximetry 99 98 99 Oxygen Delivery 01/22/25 23:30 01/22/25 23:31 01/22/25 23:45 Temperature Pulse Rate 86 88 86 Respiratory Rate 18 23 H 22 H Blood Pressure 148/84 H Pulse Oximetry 98 99 98 Oxygen Delivery 01/22/25 23:46 01/23/25 00:00 01/23/25 00:01 Temperature Pulse Rate 85 85 83 Respiratory Rate 22 H 21 H 21 H Blood Pressure 131/79 126/74 Pulse Oximetry 98 96 97 Oxygen Delivery 01/23/25 00:15 01/23/25 00:16 01/23/25 00:30 Temperature Pulse Rate 84 90 87 Respiratory Rate 19 21 H 17 Blood Pressure 132/71 Pulse Oximetry 98 98 98 Oxygen Delivery 01/23/25 00:31 01/23/25 00:45 01/23/25 00:46 Temperature Pulse Rate 85 82 76 Respiratory Rate 22 H 21 H 22 H Blood Pressure 125/77 115/64 Pulse Oximetry 98 97 97 Oxygen Delivery 01/23/25 01:00 01/23/25 01:01 01/23/25 01:15 Temperature Pulse Rate 83 81 86 Respiratory Rate 19 19 22 H Blood Pressure 116/68 Pulse Oximetry 98 98 98 Oxygen Delivery 01/23/25 01:16 01/23/25 01:48 01/23/25 02:05 Temperature 98.1 F Pulse Rate 78 88 Respiratory Rate 20 16 Blood Pressure 113/66 128/94 H Pulse Oximetry 99 100 Oxygen Delivery Room Air 01/23/25 05:13 01/23/25 08:00 Temperature 98.9 F Pulse Rate 80 Respiratory Rate 16 Blood Pressure 118/70 Pulse Oximetry 99 Oxygen Delivery Room Air Intake/Output Intake/Output: Intake & Output 01/20/25 01/21/25 01/22/25 01/23/25 23:59 23:59 23:59 23:59 Intake Total 200 Balance 200 Meds/Results Medications: Active Medications Generic Name Dose Route Start Last Admin Trade Name Freq PRN Reason Stop Dose Admin Acetaminophen 650 mg 01/23/25 00:35 Acetaminophen 325 Mg Tablet PO Q4H PRN Mild Pain (1-3) or Fever Piperacillin Sod/Tazobactam 50 mls @ 100 mls/hr 01/23/25 06:00 01/23/25 05:59 Sod 3.375 gm/ Sodium Chloride IVPB Infused Q6H [facility] Infusion Sodium Chloride 1,000 mls @ 125 mls/hr 01/23/25 00:35 01/23/25 03:25 Normal Saline Iv IV CONT 125 mls/hr .Q8H [facility] Administration Morphine Sulfate 4 mg 01/23/25 00:35 Morphine Sulfate (*Crx) 4 Mg/Ml Inj IV PUSH Q2H PRN Pain Rated 7-10 Ondansetron HCl 4 mg 01/23/25 00:35 Ondansetron Inj 4 Mg/2 Ml Vial IV PUSH Q4H PRN Nausea Labs 01/23/25 05:41 01/23/25 05:41 Labs: Laboratory Results - last 24 hr 01/22/25 01/22/25 01/22/25 21:21 21:46 22:53 WBC 12.0 H RBC 5.09 Hgb 15.8 Hct 45.3 MCV 89.0 MCH 31.0 MCHC 34.9 RDW 12.7 Plt Count 226 MPV 8.8 Immature Gran % (Auto) 0.6 H Neut % (Auto) 85.9 H Lymph % (Auto) 5.9 L [place] % (Auto) 7.0 Eos % (Auto) 0.5 Baso % (Auto) 0.1 L Lymph # (Auto) 0.71 L [place] # (Auto) 0.8 H Eos # (Auto) 0.1 Baso # (Auto) 0.0 Abs Immat Gran (auto) 0.07 H Absolute Neuts (auto) 10.3 H Absolute Nucleated RBC 0.000 Nucleated RBC % 0.0 PT INR Sodium 137 Potassium 4.4 Chloride 101 Carbon Dioxide 26 Anion Gap 10 BUN 20 Creatinine 1.01 Estim Creat Clear Calc 65 Estimated GFR > 60 Glucose 125 H Lactic Acid 1.2 Calcium 9.4 Magnesium Total Bilirubin 1.7 H AST 26 ALT 20 Alkaline Phosphatase 58 Total Protein 7.6 Albumin 4.2 Lipase 36 Procalcitonin Urine Color Yellow Urine Appearance Clear Urine pH 6.0 Ur Specific [place] > 1.045 H Urine Protein 1+ H Urine Glucose (UA) Negative Urine Ketones 2+ H Ur Blood (Man) Negative Urine Nitrate Negative Urine Bilirubin Negative Urine Urobilinogen 1.0 Leukocyte Esterase Rfl Negative Urine RBC 0-2 Urine WBC 0-5 Ur Squamous Epith Cells None seen Urine Bacteria None seen 01/23/25 05:41 WBC 9.5 RBC 4.39 L Hgb 13.6 L Hct 39.6 L MCV 90.2 MCH 31.0 MCHC 34.3 RDW 12.6 Plt Count 200 MPV 8.8 Immature Gran % (Auto) 0.2 Neut % (Auto) 79.4 H Lymph % (Auto) 10.3 L [place] % (Auto) 8.0 Eos % (Auto) 1.8 Baso % (Auto) 0.3 Lymph # (Auto) 0.98 [place] # (Auto) 0.8 H Eos # (Auto) 0.2 Baso # (Auto) 0.0 Abs Immat Gran (auto) 0.02 Absolute Neuts (auto) 7.6 H Absolute Nucleated RBC 0.000 Nucleated RBC % 0.0 PT 15.7 H INR 1.3 Sodium 134 L Potassium 4.4 Chloride 105 Carbon Dioxide 23 Anion Gap 6 BUN 18 Creatinine 0.91 Estim Creat Clear Calc 72 Estimated GFR > 60 Glucose 108 Lactic Acid Calcium 8.3 L Magnesium 2.2 Total Bilirubin 1.3 AST 21 ALT 15 Alkaline Phosphatase 53 Total Protein 6.2 L Albumin 3.3 L Lipase Procalcitonin 0.1 Urine Color Urine Appearance Urine pH Ur Specific [place] Urine Protein Urine Glucose (UA) Urine Ketones Ur Blood (Man) Urine Nitrate Urine Bilirubin Urine Urobilinogen Leukocyte Esterase Rfl Urine RBC Urine WBC Ur Squamous Epith Cells Urine Bacteria ASA Classification/Sedation ASA Classification/Sedation ASA Class: II Emergent: No Risks: Risks, benefits and alternatives explained and patient/family accepted plan for sedation. Patient re-evaluated immediately prior to sedation.
[2025-01-24] MEDS: PIPERACILLIN/TAZOBACTAM SOD 3.375 GM in SODIUM CHLORIDE 0.9% IV 50 ML 100 ML IVPB ×5 (00:16→23:40)
[2025-01-24] MEDS: SODIUM CHLORIDE 0.9% IV 1,000 ML 125 ML IV CONT ×2 (00:16→09:03)
[2025-01-24 04:36] VITALS: BP 135/74; PULSE 84; RESP 17; TEMP 36.9; O2SAT 97
[2025-01-24 04:59] LABS: Hematocrit 39.3 % (42.0-52.0); Hemoglobin 13.2 g/dL (14.0-18.0); Mean Corpuscular HGB Conc 33.6 g/dl (32-36); Mean Corpuscular Hemoglobin 30.4 pg (26-34); Mean Corpuscular Volume 90.6 fl (80-100); Platelet Count Result 218 k/mm3 (150-375); Red Blood Count 4.34 M/mm3 (4.6-6.20); White Blood Count 7.4 K/mm3 (4.5-10.0)
[2025-01-24 05:13] LABS: Anion Gap 6 mmol/L (4-12); Blood Urea Nitrogen 13 mg/dL (9-20); Calcium 8.2 mg/dL (8.4-10.2); Carbon Dioxide 22 mmol/L (22-30); Chloride 107 mmol/L (98-107); Estimated CRCL calculation 67 ml/min; Estimated Glomerular Filt Rate > 60; Glucose 85 mg/dL (65-110); Potassium 4.2 mmol/L (3.4-5.0); Sodium 135 mmol/L (137-145)
--- NOTE | 2025-01-24 09:17 | PM.IMPN ---
Progress Note: A&P Assessment and Plan (1) Abscess of sigmoid colon due to diverticulitis: Code(s): K57.20 - Diverticulitis of large intestine with perforation and abscess without bleeding Status: Acute Assessment and Plan: Patient went to [facility] and had a CT scan of abdomen pelvis which showed a perforated sigmoid diverticulitis with adjacent abscess, directed to come to the hospital at that time. - Antibiotics: Zosyn 3.375 g IV q6H started on 01/22 - Gentle IV fluid resuscitation - Diet: clear liquid diet, advance per surgery - Fluids: received 1L bolus in the ED and was started on 125 ml/hr on 01/23. Discontinued on 01/24 as patient tolerating a diet. - Blood cultures: pending - Abscess culture: pending - Monitor vital signs, I&Os, track stool output, watch for bloody stools, neuro status and patient is a fall risk - Monitor serum electrolytes and CBC - General surgery consulted s/p percutaneous drain on 01/23 with IR. 25 mL of opaque fowl smelling and purulent appearing demarco-colored fluid was aspirated for testing. (2) Essential (primary) hypertension: Code(s): I10 - Essential (primary) hypertension Status: Acute Assessment and Plan: Chronic - amlodipine 5 mg and candesartan 32 mg - blood pressures reviewed and stable, continue to monitor Time Spent With Patient Time with patient: 25 - 35 minutes Subjective Date/time seen: 01/24/25 09:17 Interval history: 59-year-old male with PMH of hypertension presents to the hospital on 01/22/2025 with lower abdominal pain for the past 4 days. Patient went to [facility] and had a CT scan of abdomen pelvis which showed a perforated sigmoid diverticulitis with adjacent abscess, directed to come to the hospital at that time. Patient is pleasant sitting up comfortably in bed. He endorses slight abdominal discomfort around the drain insertion site. He has no other complaints denying chest pain, palpitations, shortness of breath, nausea/vomiting. Review of Systems Review of Systems: All systems reviewed & are unremarkable except as noted in HPI and below (Subjective) Exam Narrative: AF HR 84 RR 17 SPO2 97 BP 135/74 General: male in no acute respiratory distress who is nontoxic appearing, sitting up in bed. HEENT: Normocephalic. Atraumatic. Extraocular movement intact. Sclera clear and anicteric. No facial asymmetry. Chest: Lungs are clear to auscultation bilaterally. No wheezes or crackles. CV: Heart was regular rate and rhythm. Abd: Abdomen was soft. Drain placed to abdomen with minimal output. Nondistended. Positive bowel sounds. Ext: No clubbing, cyanosis, or edema. DP pulses bilaterally. Neuro: Patient is alert. Speech is clear. Objective Data Vital Signs Vital Signs: Vital Signs - 24 hr 01/23/25 11:20 01/23/25 11:40 01/23/25 11:45 Temperature Pulse Rate 77 75 80 Respiratory Rate 20 18 16 Blood Pressure 141/69 H 124/75 138/78 Pulse Oximetry 99 100 100 Oxygen Delivery Nasal Cannula Nasal Cannula Nasal Cannula Oxygen Flow Rate 2 2 2 01/23/25 11:50 01/23/25 11:55 01/23/25 12:00 Temperature Pulse Rate 79 83 81 Respiratory Rate 20 23 H 22 H Blood Pressure 144/87 H 147/87 H 141/84 H Pulse Oximetry 100 100 100 Oxygen Delivery Nasal Cannula Nasal Cannula Nasal Cannula Oxygen Flow Rate 2 2 2 01/23/25 12:05 01/23/25 12:10 01/23/25 14:00 Temperature 96.7 F L Pulse Rate 79 79 80 Respiratory Rate 22 H 20 18 Blood Pressure 143/83 H 131/76 130/77 Pulse Oximetry 100 100 98 Oxygen Delivery Nasal Cannula Nasal Cannula Oxygen Flow Rate 2 2 01/23/25 19:43 01/23/25 20:00 01/24/25 04:36 Temperature 98.3 F 98.4 F Pulse Rate 79 84 Respiratory Rate 18 17 Blood Pressure 127/74 135/74 Pulse Oximetry 97 97 Oxygen Delivery Room Air Oxygen Flow Rate Intake/Output Intake/Output: Intake & Output 01/21/25 01/22/25 01/23/25 01/24/25 23:59 23:59 23:59 23:59 Intake Total 2500 1250 Balance 2500 1250 Meds/Results Medications: Active Medications Generic Name Dose Route Start Last Admin Trade Name Freq PRN Reason Stop Dose Admin Acetaminophen 650 mg 01/23/25 00:35 Acetaminophen 325 Mg Tablet PO Q4H PRN Mild Pain (1-3) or Fever Piperacillin Sod/Tazobactam 50 mls @ 100 mls/hr 01/23/25 06:00 01/24/25 05:57 Sod 3.375 gm/ Sodium Chloride IVPB Infused Q6H MERRILL Infusion Sodium Chloride 1,000 mls @ 125 mls/hr 01/23/25 00:35 01/24/25 09:03 Normal Saline Iv IV CONT 125 mls/hr .Q8H MERRILL Administration Morphine Sulfate 4 mg 01/23/25 00:35 Morphine Sulfate (*Crx) 4 Mg/Ml Inj IV PUSH Q2H PRN Pain Rated 7-10 Ondansetron HCl 4 mg 01/23/25 00:35 Ondansetron Inj 4 Mg/2 Ml Vial IV PUSH Q4H PRN Nausea Radiology Results: ITS Impressions Catheter Placement CT 01/23/25 12:25 IMPRESSION: 1. Successful CT-guided pelvic abscess drainage. 2. 25 mL fluid was sent for aerobic and anaerobic cultures. 3. The catheter will be managed by Dr. Vargas. Labs Labs: Laboratory Results - last 24 hr 01/24/25 04:19 WBC 7.4 RBC 4.34 L Hgb 13.2 L Hct 39.3 L MCV 90.6 MCH 30.4 MCHC 33.6 RDW 12.7 Plt Count 218 MPV 8.9 Sodium 135 L Potassium 4.2 Chloride 107 Carbon Dioxide 22 Anion Gap 6 BUN 13 D Creatinine 0.98 Estim Creat Clear Calc 67 Estimated GFR > 60 Glucose 85 Calcium 8.2 L Quality VTE Prophylaxis VTE prophylaxis: mechanical ordered
[2025-01-24] MEDS: ROSUVASTATIN 5 MG TABLET PO (10:08)
[2025-01-24] MEDS: CANDESARTAN CILEXETIL 16 MG TABLET 32 MG PO (10:08)
--- NOTE | 2025-01-24 10:20 | PM.PNGS ---
Progress Note: A&P Assessment and Plan (1) Abscess of sigmoid colon due to diverticulitis: Code(s): K57.20 - Diverticulitis of large intestine with perforation and abscess without bleeding <Sahil Vargas, DO - Last Filed: 01/24/25 10:23> Status: Acute <Sahil Vargas, DO - Last Filed: 01/24/25 10:23> Assessment and Plan: Patient presented with 5 x 4 cm abscess due to perforated diverticulitis. His WBC has remained normal. His abdominal exam is benign, he is minimally tender to palpation in the lower abdomen near drain. No peritoneal signs. VSS. Afebrile. His last colonoscopy was 9 years, FMH unknown, no changes in bowel habits besides this past week. Perc drain placed 01/23, cultures pending. Advance to [facility], continue IV ABX. No acute surgical intervention at this time. Surgery will follow. Please see attending attestation for further plan and updates <Sahil Vargas, DO - Last Filed: 01/24/25 10:23> (2) Essential (primary) hypertension: Code(s): I10 - Essential (primary) hypertension <Sahil Vargas, DO - Last Filed: 01/24/25 10:23> Status: Acute <Sahil Vargas, DO - Last Filed: 01/24/25 10:23> Subjective Subjective Date/Time Seen: 01/24/25 10:20 <Sahil Vargas, DO - Last Filed: 01/24/25 10:23> Interval history: NAEON. Drain placed yesterday, 25 cc aspirated, minimal in drain, some output in tubing that appeared purulent, stripped this morning. WBC WNL. Minimal pain. VSS. Afebrile. <Sahil Vargas, DO - Last Filed: 01/24/25 10:23> Review of Systems Review of Systems: All systems reviewed & are unremarkable except as noted in HPI and below (Subjective) <Sahil Vargas, DO - Last Filed: 01/24/25 10:23> Exam Const: General: healthy appearing, no acute distress, alert and awake <Sahil Vargas DO - Last Filed: 01/24/25 10:23> HENMT: Head: normocephalic and atraumatic <Sahil E. Vargas, DO - Last Filed: 01/24/25 10:23> Eyes: Sclera: sclerae normal <Sahil E. Vargas, DO - Last Filed: 01/24/25 10:23> EOM: EOMs intact bilaterally <Sahil E. Vargas, DO - Last Filed: 01/24/25 10:23> Neck: Neck: normal visual inspection, no lymphadenopathy and no JVD <Sahil E. Vargas, DO - Last Filed: 01/24/25 10:23> Resp: Other: symmetric expansion, no IWOB, on RA <Sahil E. Vargas, DO - Last Filed: 01/24/25 10:23> Cardio: Rate: regular rate <Sahil E. Vargas, DO - Last Filed: 01/24/25 10:23> Rhythm: regular rhythm <Sahil E. Vargas, DO - Last Filed: 01/24/25 10:23> GI: Other: Soft, minimally TTP in lower abdomen near drain site, ND, nonperitoneal, drain with small amount of purulent output <Sahil E. Vargas, DO - Last Filed: 01/24/25 10:23> Skin: General skin exam: normal color and turgor normal <Sahil E. Vargas, DO - Last Filed: 01/24/25 10:23> Neuro: General: patient oriented x3 and moves all extremities <Sahil E. Vargas, DO - Last Filed: 01/24/25 10:23> Extrem: General: normal to inspection and no pedal edema <Sahil E. Vargas, DO - Last Filed: 01/24/25 10:23> Psych: Appearance: grossly normal and well kempt <Sahil E. Vargas, DO - Last Filed: 01/24/25 10:23> Mental Status: mental status grossly normal <Sahil E. Vargas, DO - Last Filed: 01/24/25 10:23> Speech and movement: Normal speech and movement present <Sahil E. Vargas, DO - Last Filed: 01/24/25 10:23> Affect: normal affect <Sahil E. Vargas, DO - Last Filed: 01/24/25 10:23> Attitude: cooperative <Sahil E. Vargas, DO - Last Filed: 01/24/25 10:23> Thought process: Normal thought process present <Sahil Vargas DO - Last Filed: 01/24/25 10:23> Objective Data Vital Signs Vital Signs: Vital Signs - 24 hr 01/23/25 11:20 01/23/25 11:40 01/23/25 11:45 Temperature Pulse Rate 77 75 80 Respiratory Rate 20 18 16 Blood Pressure 141/69 H 124/75 138/78 Pulse Oximetry 99 100 100 Oxygen Delivery Nasal Cannula Nasal Cannula Nasal Cannula Oxygen Flow Rate 2 2 2 01/23/25 11:50 01/23/25 11:55 01/23/25 12:00 Temperature Pulse Rate 79 83 81 Respiratory Rate 20 23 H 22 H Blood Pressure 144/87 H 147/87 H 141/84 H Pulse Oximetry 100 100 100 Oxygen Delivery Nasal Cannula Nasal Cannula Nasal Cannula Oxygen Flow Rate 2 2 2 01/23/25 12:05 01/23/25 12:10 01/23/25 14:00 Temperature 96.7 F L Pulse Rate 79 79 80 Respiratory Rate 22 H 20 18 Blood Pressure 143/83 H 131/76 130/77 Pulse Oximetry 100 100 98 Oxygen Delivery Nasal Cannula Nasal Cannula Oxygen Flow Rate 2 2 01/23/25 19:43 01/23/25 20:00 01/24/25 04:36 Temperature 98.3 F 98.4 F Pulse Rate 79 84 Respiratory Rate 18 17 Blood Pressure 127/74 135/74 Pulse Oximetry 97 97 Oxygen Delivery Room Air Oxygen Flow Rate 01/24/25 09:00 Temperature Pulse Rate Respiratory Rate Blood Pressure Pulse Oximetry Oxygen Delivery Room Air Oxygen Flow Rate <Sahil Vargas DO - Last Filed: 01/24/25 10:23> Intake/Output Intake/Output: Intake & Output 01/21/25 01/22/25 01/23/25 01/24/25 23:59 23:59 23:59 23:59 Intake Total 2500 1250 Balance 2500 1250 <Sahil Vargas, DO - Last Filed: 01/24/25 10:23> Meds/Results Medications: Active Medications Generic Name Dose Route Start Last Admin Trade Name Freq PRN Reason Stop Dose Admin Acetaminophen 650 mg 01/23/25 00:35 Acetaminophen 325 Mg Tablet PO Q4H PRN Mild Pain (1-3) or Fever Amlodipine Besylate 5 mg 01/24/25 09:35 01/24/25 10:08 Amlodipine Besylate 5 Mg Tablet PO 5 mg DAILY MERRILL Administration Candesartan Cilexetil 32 mg 01/24/25 09:30 01/24/25 10:08 Candesartan Cilexetil 16 Mg Tablet PO 32 mg QAM MERRILL Administration Piperacillin Sod/Tazobactam 50 mls @ 100 mls/hr 01/23/25 06:00 01/24/25 05:57 Sod 3.375 gm/ Sodium Chloride IVPB Infused Q6H MERRILL Infusion Sodium Chloride 1,000 mls @ 125 mls/hr 01/23/25 00:35 01/24/25 09:03 Normal Saline Iv IV CONT 125 mls/hr .Q8H MERRILL Administration Morphine Sulfate 4 mg 01/23/25 00:35 Morphine Sulfate (*Crx) 4 Mg/Ml Inj IV PUSH Q2H PRN Pain Rated 7-10 Ondansetron HCl 4 mg 01/23/25 00:35 Ondansetron Inj 4 Mg/2 Ml Vial IV PUSH Q4H PRN Nausea Rosuvastatin Calcium 5 mg 01/24/25 09:35 01/24/25 10:08 Rosuvastatin 5 Mg Tablet PO 5 mg DAILY MERRILL Administration <Sahil Vargas, DO - Last Filed: 01/24/25 10:23> Radiology Results: ITS Impressions Catheter Placement CT 01/23/25 12:25 IMPRESSION: 1. Successful CT-guided pelvic abscess drainage. 2. 25 mL fluid was sent for aerobic and anaerobic cultures. 3. The catheter will be managed by Dr. Vargas. <Sahil Vargas DO - Last Filed: 01/24/25 10:23> Labs Labs: Laboratory Results - last 24 hr 01/24/25 04:19 WBC 7.4 RBC 4.34 L Hgb 13.2 L Hct 39.3 L MCV 90.6 MCH 30.4 MCHC 33.6 RDW 12.7 Plt Count 218 MPV 8.9 Sodium 135 L Potassium 4.2 Chloride 107 Carbon Dioxide 22 Anion Gap 6 BUN 13 D Creatinine 0.98 Estim Creat Clear Calc 67 Estimated GFR > 60 Glucose 85 Calcium 8.2 L <Sahil Vargas DO - Last Filed: 01/24/25 10:23> Attestation Supervising Provider Attestation I have personally seen and evaluated the patient today with surgical consultant.? ? I have reviewed any new relevant radiographic and laboratory results.? I have reviewed the rodríguez elements of the patient's current surgical or medical problems and I have personally performed a substantive portion of the care for this patient.? I personally performed the pertinent physical exam and reviewed and confirmed the patient's medicine list.? ? I have formulated the surgical care plan and I agree with the documented note above. Will start to advance diet today. WBC normal today now. Continue IV abx. Probably home on oral abx this weekend. Repeat CT tomorrow or Monday to make sure pelvic abscess has resolved before removing drain. <Marquez Saldaña MD - Last Filed: 01/24/25 17:53>
[2025-01-24 14:00] VITALS: BP 150/81; PULSE 83; RESP 18; TEMP 36.5; O2SAT 98
[2025-01-24 22:00] VITALS: BP 125/65; PULSE 68; RESP 16; TEMP 36.6; O2SAT 96
[2025-01-25] MEDS: PIPERACILLIN/TAZOBACTAM SOD 3.375 GM in SODIUM CHLORIDE 0.9% IV 50 ML 100 ML IVPB ×4 (05:43→23:20)
[2025-01-25 06:00] VITALS: BP 129/69; PULSE 65; RESP 16; TEMP 36.7; O2SAT 96
[2025-01-25] MEDS: CANDESARTAN CILEXETIL 16 MG TABLET 32 MG PO (08:43)
[2025-01-25] MEDS: ROSUVASTATIN 5 MG TABLET PO (08:43)
[2025-01-25] MEDS: ENOXAPARIN 40 MG/0.4 ML SYRINGE SUB-Q (11:29)
--- NOTE | 2025-01-25 11:38 | PM.PNGS ---
Progress Note: A&P Assessment and Plan (1) Abscess of sigmoid colon due to diverticulitis: Code(s): K57.20 - Diverticulitis of large intestine with perforation and abscess without bleeding Status: Acute Assessment and Plan: Improving. Still not much appetite. Will continue full liquids and antibiotics. (2) Hx of drainage of abscess: Code(s): Z98.890 - Other specified postprocedural states Status: Acute Assessment and Plan: Continue drainage and Zosyn antibiotics. Possibly advanced to low-fiber diet tomorrow. Subjective Subjective Date/Time Seen: 01/25/25 11:38 Patient reports: no new complaints, feels better, voiding w/o difficulty, diarrhea (Couple of loose stools this morning but not a frequent number of loose bowel movements.) and afebrile Interval history: Appetite still meager, complains of early satiety Review of Systems Review of Systems: All systems reviewed & are unremarkable except as noted in HPI and below (HPI) Exam Const: General: comfortable, alert, awake, well groomed and well nourished Orientation/consciousness: patient oriented x3 GI: Inspection: non-distended, scaphoid and other (Serosanguineous output from pigtail catheter) GI Palp: Yes Soft to palpation and Yes Tenderness to palpation present (GI) (Lower abdomen, around drain site) Auscultation: normal bowel sounds Objective Data Vital Signs Vital Signs: Vital Signs - 24 hr 01/24/25 14:00 01/24/25 20:00 01/24/25 22:00 Temperature 36.5 C 36.6 C Pulse Rate 83 68 Respiratory Rate 18 16 Blood Pressure 150/81 H 125/65 Pulse Oximetry 98 96 Oxygen Delivery Room Air 01/25/25 06:00 Temperature 36.7 C Pulse Rate 65 Respiratory Rate 16 Blood Pressure 129/69 Pulse Oximetry 96 Oxygen Delivery Intake/Output Intake/Output: Intake & Output 01/22/25 01/23/25 01/24/25 01/25/25 23:59 23:59 23:59 23:59 Intake Total 2500 2310 930 Balance 2500 2310 930 Meds/Results Medications: Active Medications Generic Name Dose Route Start Last Admin Trade Name Freq PRN Reason Stop Dose Admin Acetaminophen 650 mg 01/23/25 00:35 Acetaminophen 325 Mg Tablet PO Q4H PRN Mild Pain (1-3) or Fever Amlodipine Besylate 5 mg 01/24/25 09:35 01/25/25 08:43 Amlodipine Besylate 5 Mg Tablet PO 5 mg DAILY MERRILL Administration Candesartan Cilexetil 32 mg 01/24/25 09:30 01/25/25 08:43 Candesartan Cilexetil 16 Mg Tablet PO 32 mg QAM MERRILL Administration Enoxaparin Sodium 40 mg 01/26/25 09:00 Enoxaparin 40 Mg/0.4 Ml Syringe SUB-Q DAILY MERRILL Piperacillin Sod/Tazobactam 50 mls @ 100 mls/hr 01/23/25 06:00 01/25/25 11:28 Sod 3.375 gm/ Sodium Chloride IVPB 100 mls/hr Q6H MERRILL Administration Morphine Sulfate 4 mg 01/23/25 00:35 Morphine Sulfate (*Crx) 4 Mg/Ml Inj IV PUSH Q2H PRN Pain Rated 7-10 Ondansetron HCl 4 mg 01/23/25 00:35 Ondansetron Inj 4 Mg/2 Ml Vial IV PUSH Q4H PRN Nausea Rosuvastatin Calcium 5 mg 01/24/25 09:35 01/25/25 08:43 Rosuvastatin 5 Mg Tablet PO 5 mg DAILY MERRILL Administration Radiology Results: ITS Impressions Catheter Placement CT 01/23/25 12:25 IMPRESSION: 1[address]ful CT-guided pelvic abscess drainage. 2. 25 mL fluid was sent for aerobic and anaerobic cultures. 3. The catheter will be managed by Dr. Vargas. Blood cultures pending, Gram stain suggests polymicrobial infection, abscess cultures pending
--- NOTE | 2025-01-25 12:28 | P.PNIM_ITS ---
Progress Note: A&P Assessment and Plan (1) Abscess of sigmoid colon due to diverticulitis: Code(s): K57.20 - Diverticulitis of large intestine with perforation and abscess without bleeding Status: Acute Assessment and Plan: Patient went to [facility] and had a CT scan of abdomen pelvis which showed a perforated sigmoid diverticulitis with adjacent abscess, directed to come to the hospital at that time. - Antibiotics: Zosyn 3.375 g IV q6H started on 01/22 - Gentle IV fluid resuscitation - Diet: clear liquid diet, advance per surgery - Fluids: received 1L bolus in the ED and was started on 125 ml/hr on 01/23. Discontinued on 01/24 as patient tolerating a diet. - Blood cultures: pending - Abscess culture: pending - Monitor vital signs, I&Os, track stool output, watch for bloody stools, neuro status and patient is a fall risk - Monitor serum electrolytes and CBC - General surgery consulted s/p percutaneous drain on 01/23 with IR. 25 mL of opaque fowl smelling and purulent appearing demarco-colored fluid was aspirated for testing. 01/[address], pt is on IV zosyn surgery planning on possibly advancing to low fiber tomorrow as pt is doing well labs ordered afebrile- monitor temp/vs (2) Essential (primary) hypertension: Code(s): I10 - Essential (primary) hypertension Status: Acute Assessment and Plan: Chronic - amlodipine 5 mg and candesartan 32 mg - blood pressures reviewed and stable, continue to monitor Time Spent With Patient Time with patient: 25 - 35 minutes Subjective Date/time seen: 01/25/25 0800 Interval history: 59-year-old male with PMH of hypertension presents to the hospital on 01/22/2025 with lower abdominal pain for the past 4 days. Patient went to [facility] and had a CT scan of abdomen pelvis which showed a perforated sigmoid diverticulitis with adjacent abscess, directed to come to the hospital at that time. Patient is seen and examined. He is eating breakfast, reports not much appetite but able to keep food down and have no nausea or vomiting. Denies pain or sob. Exam Narrative: General: male in no acute respiratory distress who is nontoxic appearing, sitting up in bed. HEENT: Normocephalic. Atraumatic. Extraocular movement intact. Sclera clear and anicteric. No facial asymmetry. Chest: Lungs are clear to auscultation bilaterally. No wheezes or crackles. CV: Heart was regular rate and rhythm. Abd: Abdomen was soft. Drain to abdomen with minimal output. Nondistended. Positive bowel sounds. Ext: No clubbing, cyanosis, or edema. DP pulses bilaterally. Neuro: Patient is alert. Speech is clear. Const: General: comfortable and no acute distress Other: A&O x3 HENMT: Mouth: Yes moist mucous membranes Eyes: Pupils: Equal, round and reactive pupils present Neck: Neck: supple Resp: Effort & Inspection: normal respiratory effort Auscultation: clear to auscultation bilaterally Cardio: Rate: regular rate Rhythm: regular rhythm GI: Other: Mild tenderness Neuro: Cranial nerves: Yes Equal, round and reactive pupils present Extrem: General: no edema Objective Data Vital Signs Vital Signs: Vital Signs - 24 hr 01/24/25 14:00 01/24/25 20:00 01/24/25 22:00 Temperature 97.7 F 97.9 F Pulse Rate 83 68 Respiratory Rate 18 16 Blood Pressure 150/81 H 125/65 Pulse Oximetry 98 96 Oxygen Delivery Room Air 01/25/25 06:00 Temperature 98.1 F Pulse Rate 65 Respiratory Rate 16 Blood Pressure 129/69 Pulse Oximetry 96 Oxygen Delivery Intake/Output Intake/Output: Intake & Output 01/22/25 01/23/25 01/24/25 01/25/25 23:59 23:59 23:59 23:59 Intake Total 2500 2310 930 Balance 2500 2310 930 Meds/Results Medications: Active Medications Generic Name Dose Route Start Last Admin Trade Name Freq PRN Reason Stop Dose Admin Acetaminophen 650 mg 01/23/25 00:35 Acetaminophen 325 Mg Tablet PO Q4H PRN Mild Pain (1-3) or Fever Amlodipine Besylate 5 mg 01/24/25 09:35 01/25/25 08:43 Amlodipine Besylate 5 Mg Tablet PO 5 mg DAILY MERRILL Administration Candesartan Cilexetil 32 mg 01/24/25 09:30 01/25/25 08:43 Candesartan Cilexetil 16 Mg Tablet PO 32 mg QAM MERRILL Administration Enoxaparin Sodium 40 mg 01/26/25 09:00 Enoxaparin 40 Mg/0.4 Ml Syringe SUB-Q DAILY ON LICENSE OF [facility] Piperacillin Sod/Tazobactam 50 mls @ 100 mls/hr 01/23/25 06:00 01/25/25 11:28 Sod 3.375 gm/ Sodium Chloride IVPB 100 mls/hr Q6H MERRILL Administration Morphine Sulfate 4 mg 01/23/25 00:35 Morphine Sulfate (*Crx) 4 Mg/Ml Inj IV PUSH Q2H PRN Pain Rated 7-10 Ondansetron HCl 4 mg 01/23/25 00:35 Ondansetron Inj 4 Mg/2 Ml Vial IV PUSH Q4H PRN Nausea Rosuvastatin Calcium 5 mg 01/24/25 09:35 01/25/25 08:43 Rosuvastatin 5 Mg Tablet PO 5 mg DAILY MERRILL Administration Radiology Results: ITS Impressions Catheter Placement CT 01/23/25 12:25 IMPRESSION: 1. Successful CT-guided pelvic abscess drainage. 2. 25 mL fluid was sent for aerobic and anaerobic cultures. 3. The catheter will be managed by Dr. Vargas. Quality VTE Prophylaxis VTE prophylaxis: mechanical ordered
[2025-01-25 14:00] VITALS: BP 125/77; PULSE 69; RESP 16; TEMP 36.4; O2SAT 99
[2025-01-25 22:00] VITALS: BP 118/68; PULSE 61; RESP 16; TEMP 37.1; O2SAT 98
[2025-01-26] MEDS: PIPERACILLIN/TAZOBACTAM SOD 3.375 GM in SODIUM CHLORIDE 0.9% IV 50 ML 100 ML IVPB ×4 (05:22→23:37)
[2025-01-26 05:43] LABS: Hematocrit 39.7 % (42.0-52.0); Hemoglobin 13.6 g/dL (14.0-18.0); Mean Corpuscular HGB Conc 34.3 g/dl (32-36); Mean Corpuscular Hemoglobin 30.6 pg (26-34); Mean Corpuscular Volume 89.2 fl (80-100); Platelet Count Result 241 k/mm3 (150-375); Red Blood Count 4.45 M/mm3 (4.6-6.20); White Blood Count 6.3 K/mm3 (4.5-10.0)
[2025-01-26 06:00] VITALS: BP 125/65; PULSE 71; RESP 16; TEMP 36.4; O2SAT 99
[2025-01-26 06:21] LABS: Alanine Aminotransferase 12 U/L (6-50); Albumin Level 3.3 g/dL (3.5-5.1); Alkaline Phosphatase 39 U/L (38-126); Anion Gap 7 mmol/L (4-12); Aspartate Amino Transferase 19 U/L (17-59); Bilirubin,Total 0.8 mg/dL (0.2-1.3); Blood Urea Nitrogen 8 mg/dL (9-20); Calcium 8.5 mg/dL (8.4-10.2); Carbon Dioxide 25 mmol/L (22-30); Chloride 104 mmol/L (98-107); Estimated CRCL calculation 61 ml/min; Estimated Glomerular Filt Rate > 60; Glucose 93 mg/dL (65-110); Potassium 4.2 mmol/L (3.4-5.0); Sodium 136 mmol/L (137-145); Total Protein 6.1 g/dL (6.3-8.2)
[2025-01-26] MEDS: ENOXAPARIN 40 MG/0.4 ML SYRINGE SUB-Q (08:02)
[2025-01-26] MEDS: CANDESARTAN CILEXETIL 16 MG TABLET 32 MG PO (08:03)
[2025-01-26] MEDS: ROSUVASTATIN 5 MG TABLET PO (08:03)
--- NOTE | 2025-01-26 08:21 | PM.IMPN ---
Progress Note: A&P Assessment and Plan (1) Abscess of sigmoid colon due to diverticulitis: Code(s): K57.20 - Diverticulitis of large intestine with perforation and abscess without bleeding Status: Acute Assessment and Plan: Patient went to [facility] and had a CT scan of abdomen pelvis which showed a perforated sigmoid diverticulitis with adjacent abscess, directed to come to the hospital at that time. - Antibiotics: Zosyn 3.375 g IV q6H started on 01/22 - Diet: low fiber diet - Fluids: received 1L bolus in the ED and was started on 125 ml/hr on 01/23. Discontinued on 01/24 as patient tolerating a diet. - Blood cultures obtained on 01/22: No growth 24 hours - Abscess culture: staph aureus with sensitivities pending - Monitor vital signs, I&Os, track stool output, watch for bloody stools, neuro status and patient is a fall risk - Monitor serum electrolytes and CBC - General surgery consulted s/p percutaneous drain on 01/23 with IR. 25 mL of opaque fowl smelling and purulent appearing demarco-colored fluid was aspirated for testing. WBC WNL. Remains on abx as above. Discussed patient with Dr. Lacey and will order a CT abd/pelvis for 01/27, patient to be NPO at midnight. Advanced to low fiber diet. (2) Essential (primary) hypertension: Code(s): I10 - Essential (primary) hypertension Status: Acute Assessment and Plan: Chronic - amlodipine 5 mg and candesartan 32 mg - blood pressures reviewed and stable, continue to monitor Time Spent With Patient Time with patient: 25 - 35 minutes Subjective Date/time seen: 01/26/25 08:21 Interval history: 59-year-old male with PMH of hypertension presents to the hospital on 01/22/2025 with lower abdominal pain for the past 4 days. Patient went to [facility] and had a CT scan of abdomen pelvis which showed a perforated sigmoid diverticulitis with adjacent abscess, directed to come to the hospital at that time. Patient is pleasant sitting up in bed and ambulating throughout the room. He states he is tolerating his full liquid diet well denying any nausea/vomiting and abdominal pain. He continues to have slight discomfort around the drain insertion site. He has no other complaints denying chest pain, palpitations, shortness of breath. Review of Systems Review of Systems: All systems reviewed & are unremarkable except as noted in HPI and below Exam Narrative: AF HR 71 RR 16 Spo2 99 BP 125/65 General: male in no acute respiratory distress who is nontoxic appearing, sitting up on side of bed. HEENT: Normocephalic. Atraumatic. Extraocular movement intact. Sclera clear and anicteric. No facial asymmetry. Chest: Lungs are clear to auscultation bilaterally. No wheezes or crackles. CV: Heart was regular rate and rhythm. Abd: Abdomen was soft. Drain to abdomen with minimal serosanguineous output. Nondistended. Positive bowel sounds. Ext: No clubbing, cyanosis, or edema. DP pulses bilaterally. Neuro: Patient is alert. Speech is clear. Const: General: comfortable and no acute distress Other: A&O x3 HENMT: Mouth: Yes moist mucous membranes Eyes: Pupils: Equal, round and reactive pupils present Neck: Neck: supple Resp: Effort & Inspection: normal respiratory effort Auscultation: clear to auscultation bilaterally Cardio: Rate: regular rate Rhythm: regular rhythm GI: Other: Mild tenderness Neuro: Cranial nerves: Yes Equal, round and reactive pupils present Extrem: General: no edema Objective Data Vital Signs Vital Signs: Vital Signs - 24 hr 01/25/25 14:00 01/25/25 20:00 01/25/25 22:00 Temperature 97.6 F 98.7 F Pulse Rate 69 61 Respiratory Rate 16 16 Blood Pressure 125/77 118/68 Pulse Oximetry 99 98 Oxygen Delivery Room Air 01/26/25 06:00 Temperature 97.5 F L Pulse Rate 71 Respiratory Rate 16 Blood Pressure 125/65 Pulse Oximetry 99 Oxygen Delivery Intake/Output Intake/Output: Intake & Output 01/23/25 01/24/25 01/25/25 01/26/25 23:59 23:59 23:59 23:59 Intake Total 2500 2310 3070 350 Output Total 10 Balance 2500 2310 3070 340 Meds/Results Medications: Active Medications Generic Name Dose Route Start Last Admin Trade Name Freq PRN Reason Stop Dose Admin Acetaminophen 650 mg 01/23/25 00:35 Acetaminophen 325 Mg Tablet PO Q4H PRN Mild Pain (1-3) or Fever Amlodipine Besylate 5 mg 01/24/25 09:35 01/26/25 08:02 Amlodipine Besylate 5 Mg Tablet PO 5 mg DAILY MERRILL Administration Candesartan Cilexetil 32 mg 01/24/25 09:30 01/26/25 08:03 Candesartan Cilexetil 16 Mg Tablet PO 32 mg QAM MERRILL Administration Enoxaparin Sodium 40 mg 01/26/25 09:00 01/26/25 08:02 Enoxaparin 40 Mg/0.4 Ml Syringe SUB-Q 40 mg DAILY MERRILL Administration Piperacillin Sod/Tazobactam 50 mls @ 100 mls/hr 01/23/25 06:00 01/26/25 05:22 Sod 3.375 gm/ Sodium Chloride IVPB 100 mls/hr Q6H MERRILL Administration Morphine Sulfate 4 mg 01/23/25 00:35 Morphine Sulfate (*Crx) 4 Mg/Ml Inj IV PUSH Q2H PRN Pain Rated 7-10 Ondansetron HCl 4 mg 01/23/25 00:35 Ondansetron Inj 4 Mg/2 Ml Vial IV PUSH Q4H PRN Nausea Rosuvastatin Calcium 5 mg 01/24/25 09:35 01/26/25 08:03 Rosuvastatin 5 Mg Tablet PO 5 mg DAILY MERRILL Administration Radiology Results: ITS Impressions Catheter Placement CT 01/23/25 12:25 IMPRESSION: 1. Successful CT-guided pelvic abscess drainage. 2. 25 mL fluid was sent for aerobic and anaerobic cultures. 3. The catheter will be managed by Dr. Vargas. Labs Labs: Laboratory Results - last 24 hr 01/26/25 04:46 WBC 6.3 RBC 4.45 L Hgb 13.6 L Hct 39.7 L MCV 89.2 MCH 30.6 MCHC 34.3 RDW 12.3 Plt Count 241 MPV 8.8 Sodium 136 L Potassium 4.2 Chloride 104 Carbon Dioxide 25 Anion Gap 7 BUN 8 L D Creatinine 1.08 Estim Creat Clear Calc 61 Estimated GFR > 60 Glucose 93 Calcium 8.5 Total Bilirubin 0.8 AST 19 ALT 12 Alkaline Phosphatase 39 Total Protein 6.1 L Albumin 3.3 L Quality VTE Prophylaxis VTE prophylaxis: mechanical ordered
--- NOTE | 2025-01-26 11:55 | PM.PNGS ---
Progress Note: A&P Assessment and Plan (1) Abscess of sigmoid colon due to diverticulitis: Code(s): K57.20 - Diverticulitis of large intestine with perforation and abscess without bleeding Status: Acute Assessment and Plan: No new complaints, tolerated full liquids and advanced now to low-fiber diet. Repeat CT scan tomorrow morning. Continue IV antibiotics (2) Hx of drainage of abscess: Code(s): Z98.890 - Other specified postprocedural states Status: Acute Assessment and Plan: 01/23/2025, draining serosanguineous fluid. Subjective Subjective Date/Time Seen: 01/26/25 11:55 Patient reports: no new complaints, feels better, tolerating liquids well (Now on low-fiber diet), voiding w/o difficulty, bowel movement (Stools are loose but not frequent) and afebrile Review of Systems Review of Systems: All systems reviewed & are unremarkable except as noted in HPI and below (HPI) Exam Const: General: cooperative, comfortable, alert and awake Orientation/consciousness: patient oriented x3 GI: Inspection: other (Serosanguineous drain output, 10 cc since midnight) GI Palp: Yes Soft to palpation and Yes Tenderness to palpation present (GI) (Suprapubic, associated with drain) Auscultation: normoactive bowel sounds Objective Data Vital Signs Vital Signs: Vital Signs - 24 hr 01/25/25 14:00 01/25/25 20:00 01/25/25 22:00 Temperature 36.4 C 37.1 C Pulse Rate 69 61 Respiratory Rate 16 16 Blood Pressure 125/77 118/68 Pulse Oximetry 99 98 Oxygen Delivery Room Air 01/26/25 06:00 Temperature 36.4 C L Pulse Rate 71 Respiratory Rate 16 Blood Pressure 125/65 Pulse Oximetry 99 Oxygen Delivery Intake/Output Intake/Output: Intake & Output 01/23/25 01/24/25 01/25/25 01/26/25 23:59 23:59 23:59 23:59 Intake Total 2500 2310 3070 1070 Output Total 10 Balance 2500 2310 3070 1060 Meds/Results Medications: Active Medications Generic Name Dose Route Start Last Admin Trade Name Freq PRN Reason Stop Dose Admin Acetaminophen 650 mg 01/23/25 00:35 Acetaminophen 325 Mg Tablet PO Q4H PRN Mild Pain (1-3) or Fever Amlodipine Besylate 5 mg 01/24/25 09:35 01/26/25 08:02 Amlodipine Besylate 5 Mg Tablet PO 5 mg DAILY MERRILL Administration Candesartan Cilexetil 32 mg 01/24/25 09:30 01/26/25 08:03 Candesartan Cilexetil 16 Mg Tablet PO 32 mg QAM MERRILL Administration Enoxaparin Sodium 40 mg 01/26/25 09:00 01/26/25 08:02 Enoxaparin 40 Mg/0.4 Ml Syringe SUB-Q 40 mg DAILY MERRILL Administration Piperacillin Sod/Tazobactam 50 mls @ 100 mls/hr 01/23/25 06:00 01/26/25 05:22 Sod 3.375 gm/ Sodium Chloride IVPB 100 mls/hr Q6H MERRILL Administration Morphine Sulfate 4 mg 01/23/25 00:35 Morphine Sulfate (*Crx) 4 Mg/Ml Inj IV PUSH Q2H PRN Pain Rated 7-10 Ondansetron HCl 4 mg 01/23/25 00:35 Ondansetron Inj 4 Mg/2 Ml Vial IV PUSH Q4H PRN Nausea Rosuvastatin Calcium 5 mg 01/24/25 09:35 01/26/25 08:03 Rosuvastatin 5 Mg Tablet PO 5 mg DAILY MERRILL Administration Radiology Results: ITS Impressions Catheter Placement CT 01/23/25 12:25 IMPRESSION: 1. Successful CT-guided pelvic abscess drainage. 2. 25 mL fluid was sent for aerobic and anaerobic cultures. 3. The catheter will be managed by Dr. Vargas. Labs Labs: Laboratory Results - last 24 hr 01/26/25 04:46 WBC 6.3 RBC 4.45 L Hgb 13.6 L Hct 39.7 L MCV 89.2 MCH 30.6 MCHC 34.3 RDW 12.3 Plt Count 241 MPV 8.8 Sodium 136 L Potassium 4.2 Chloride 104 Carbon Dioxide 25 Anion Gap 7 BUN 8 L D Creatinine 1.08 Estim Creat Clear Calc 61 Estimated GFR > 60 Glucose 93 Calcium 8.5 Total Bilirubin 0.8 AST 19 ALT 12 Alkaline Phosphatase 39 Total Protein 6.1 L Albumin 3.3 L
[2025-01-26 13:38] VITALS: BP 121/72; PULSE 70; RESP 16; TEMP 36.6; O2SAT 96
[2025-01-26 21:20] VITALS: BP 120/72; PULSE 61; RESP 16; TEMP 36.5; O2SAT 100
[2025-01-27 05:40] VITALS: BP 122/71; PULSE 63; RESP 16; TEMP 36.8; O2SAT 97
[2025-01-27] MEDS: PIPERACILLIN/TAZOBACTAM SOD 3.375 GM in SODIUM CHLORIDE 0.9% IV 50 ML 100 ML IVPB (05:47)
--- NOTE | 2025-01-27 07:06 | PM.IMPN ---
Progress Note: A&P Assessment and Plan (1) Abscess of sigmoid colon due to diverticulitis: Code(s): K57.20 - Diverticulitis of large intestine with perforation and abscess without bleeding Status: Acute Assessment and Plan: Patient went to [facility] and had a CT scan of abdomen pelvis which showed a perforated sigmoid diverticulitis with adjacent abscess, directed to come to the hospital at that time. - Antibiotics: Zosyn 3.375 g IV q6H started on 01/22 - Diet: low fiber diet - Fluids: received 1L bolus in the ED and was started on 125 ml/hr on 01/23. Discontinued on 01/24 as patient tolerating a diet. - Blood cultures obtained on 01/22: No growth 24 hours - Abscess culture: staph aureus with sensitivities pending - Monitor vital signs, I&Os, track stool output, watch for bloody stools, neuro status and patient is a fall risk - Monitor serum electrolytes and CBC - General surgery consulted s/p percutaneous drain on 01/23 with IR. 25 mL of opaque fowl smelling and purulent appearing demarco-colored fluid was aspirated for testing. WBC WNL. Remains on abx as above. Discussed patient with Dr. Lacey and will order a CT abd/pelvis for 01/27, patient to be NPO at midnight. Advanced to low fiber diet. (2) Essential (primary) hypertension: Code(s): I10 - Essential (primary) hypertension Status: Acute Assessment and Plan: Chronic - amlodipine 5 mg and candesartan 32 mg - blood pressures reviewed and stable, continue to monitor Time Spent With Patient Time with patient: 25 - 35 minutes Subjective Date/time seen: 01/27/25 07:06 Interval history: 59-year-old male with PMH of hypertension presents to the hospital on 01/22/2025 with lower abdominal pain for the past 4 days. Patient went to [facility] and had a CT scan of abdomen pelvis which showed a perforated sigmoid diverticulitis with adjacent abscess, directed to come to the hospital at that time. Review of Systems Review of Systems: All systems reviewed & are unremarkable except as noted in HPI and below Exam Narrative: AF HR General: male in no acute respiratory distress who is nontoxic appearing, sitting up on side of bed. HEENT: Normocephalic. Atraumatic. Extraocular movement intact. Sclera clear and anicteric. No facial asymmetry. Chest: Lungs are clear to auscultation bilaterally. No wheezes or crackles. CV: Heart was regular rate and rhythm. Abd: Abdomen was soft. Drain to abdomen with minimal serosanguineous output. Nondistended. Positive bowel sounds. Ext: No clubbing, cyanosis, or edema. DP pulses bilaterally. Neuro: Patient is alert. Speech is clear. Const: General: comfortable and no acute distress Other: A&O x3 HENMT: Mouth: Yes moist mucous membranes Eyes: Pupils: Equal, round and reactive pupils present Neck: Neck: supple Resp: Effort & Inspection: normal respiratory effort Auscultation: clear to auscultation bilaterally Cardio: Rate: regular rate Rhythm: regular rhythm GI: Other: Mild tenderness Neuro: Cranial nerves: Yes Equal, round and reactive pupils present Extrem: General: no edema Objective Data Vital Signs Vital Signs: Vital Signs - 24 hr 01/26/25 13:38 01/26/25 20:00 01/26/25 21:20 Temperature 97.9 F 97.7 F Pulse Rate 70 61 Respiratory Rate 16 16 Blood Pressure 121/72 120/72 Pulse Oximetry 96 100 Oxygen Delivery Room Air 01/27/25 05:40 Temperature 98.3 F Pulse Rate 63 Respiratory Rate 16 Blood Pressure 122/71 Pulse Oximetry 97 Oxygen Delivery Intake/Output Intake/Output: Intake & Output 01/24/25 01/25/25 01/26/25 01/27/25 23:59 23:59 23:59 23:59 Intake Total 2310 3070 2340 350 Output Total 10 Balance 2310 3070 2330 350 Meds/Results Medications: Active Medications Generic Name Dose Route Start Last Admin Trade Name Freq PRN Reason Stop Dose Admin Acetaminophen 650 mg 01/23/25 00:35 Acetaminophen 325 Mg Tablet PO Q4H PRN Mild Pain (1-3) or Fever Amlodipine Besylate 5 mg 01/24/25 09:35 01/26/25 08:02 Amlodipine Besylate 5 Mg Tablet PO 5 mg DAILY MERRILL Administration Candesartan Cilexetil 32 mg 01/24/25 09:30 01/26/25 08:03 Candesartan Cilexetil 16 Mg Tablet PO 32 mg QAM MERRILL Administration Enoxaparin Sodium 40 mg 01/26/25 09:00 01/26/25 08:02 Enoxaparin 40 Mg/0.4 Ml Syringe SUB-Q 40 mg DAILY MERRILL Administration Piperacillin Sod/Tazobactam 50 mls @ 100 mls/hr 01/23/25 06:00 01/27/25 05:47 Sod 3.375 gm/ Sodium Chloride IVPB 100 mls/hr Q6H MERRILL Administration Morphine Sulfate 4 mg 01/23/25 00:35 Morphine Sulfate (*Crx) 4 Mg/Ml Inj IV PUSH Q2H PRN Pain Rated 7-10 Ondansetron HCl 4 mg 01/23/25 00:35 Ondansetron Inj 4 Mg/2 Ml Vial IV PUSH Q4H PRN Nausea Rosuvastatin Calcium 5 mg 01/24/25 09:35 01/26/25 08:03 Rosuvastatin 5 Mg Tablet PO 5 mg DAILY MERRILL Administration Radiology Results: ITS Impressions Catheter Placement CT 01/23/25 12:25 IMPRESSION: 1. Successful CT-guided pelvic abscess drainage. 2. 25 mL fluid was sent for aerobic and anaerobic cultures. 3. The catheter will be managed by Dr. Vargas. Labs Labs: Laboratory Results - last 24 hr 01/26/25 04:46 WBC 6.3 RBC 4.45 L Hgb 13.6 L Hct 39.7 L MCV 89.2 MCH 30.6 MCHC 34.3 RDW 12.3 Plt Count 241 MPV 8.8 Sodium 136 L Potassium 4.2 Chloride 104 Carbon Dioxide 25 Anion Gap 7 BUN 8 L D Creatinine 1.08 Estim Creat Clear Calc 61 Estimated GFR > 60 Glucose 93 Calcium 8.5 Total Bilirubin 0.8 AST 19 ALT 12 Alkaline Phosphatase 39 Total Protein 6.1 L Albumin 3.3 L Quality VTE Prophylaxis VTE prophylaxis: mechanical ordered
[2025-01-27] MEDS: CANDESARTAN CILEXETIL 16 MG TABLET 32 MG PO (08:41)
[2025-01-27] MEDS: ROSUVASTATIN 5 MG TABLET PO (08:41)
[2025-01-27] MEDS: ENOXAPARIN 40 MG/0.4 ML SYRINGE SUB-Q (08:41)
--- NOTE | 2025-01-27 10:03 | PM.PNGS ---
Progress Note: A&P Assessment and Plan (1) Abscess of sigmoid colon due to diverticulitis: Code(s): K57.20 - Diverticulitis of large intestine with perforation and abscess without bleeding Status: Acute Assessment and Plan: Patient continues to do well with conservative treatment of abscess with percutaneous drain. Minimal output of serous brown drainage from tube. WBC remains normal. Afebrile. CT this morning demonstrated pigtail catheter in place with small amount of residual fluid. No new abscess. Mild wall thickening of adjacent small bowel, likely inflammatory/infectious process. Small amount of air along margin of small hiatal hernia, likely distal esophageal diverticulum. Patient tolerating low fiber diet without nausea or vomiting. Continue IV antibiotics. (2) Hx of drainage of abscess: Code(s): Z98.890 - Other specified postprocedural states Status: Acute Assessment and Plan: 01/23/2025, draining brown serous fluid. Plan Discussed patient's case and plan of care with Dr. Saldaña. Subjective Subjective Date/Time Seen: 01/27/25 10:03 Patient reports: no new complaints, feels better, tolerating a regular diet (low fiber), bowel movement and afebrile Interval history: Patient doing well today. CT of abdomen this morning. [place] abdominal pain, nausea or vomiting. WBC remains normal. Exam GI: Inspection: non-distended GI Palp: Yes Soft to palpation, No Tenderness to palpation present (GI) and No Guarding due to palpation present (GI) Auscultation: normal bowel sounds Other: Percutaneous drain in place. Small amount of serous brown fluid. Nurse reports there has hardly been any drainage over the last 24 hours. Skin: General skin exam: normal color and no rashes or lesions noted Objective Data Vital Signs Vital Signs: Vital Signs - 24 hr 01/26/25 13:38 01/26/25 20:00 01/26/25 21:20 Temperature 97.9 F 97.7 F Pulse Rate 70 61 Respiratory Rate 16 16 Blood Pressure 121/72 120/72 Pulse Oximetry 96 100 Oxygen Delivery Room Air 01/27/25 05:40 01/27/25 08:40 Temperature 98.3 F Pulse Rate 63 Respiratory Rate 16 Blood Pressure 122/71 Pulse Oximetry 97 Oxygen Delivery Room Air Intake/Output Intake/Output: Intake & Output 01/24/25 01/25/25 01/26/25 01/27/25 23:59 23:59 23:59 23:59 Intake Total 2310 3070 2340 350 Output Total 10 Balance 2310 3070 2330 350 Meds/Results Medications: Active Medications Generic Name Dose Route Start Last Admin Trade Name Freq PRN Reason Stop Dose Admin Acetaminophen 650 mg 01/23/25 00:35 Acetaminophen 325 Mg Tablet PO Q4H PRN Mild Pain (1-3) or Fever Amlodipine Besylate 5 mg 01/24/25 09:35 01/27/25 08:41 Amlodipine Besylate 5 Mg Tablet PO 5 mg DAILY MERRILL Administration Candesartan Cilexetil 32 mg 01/24/25 09:30 01/27/25 08:41 Candesartan Cilexetil 16 Mg Tablet PO 32 mg QAM MERRILL Administration Enoxaparin Sodium 40 mg 01/26/25 09:00 01/27/25 08:41 Enoxaparin 40 Mg/0.4 Ml Syringe SUB-Q 40 mg DAILY MERRILL Administration Piperacillin Sod/Tazobactam 50 mls @ 100 mls/hr 01/23/25 06:00 01/27/25 05:47 Sod 3.375 gm/ Sodium Chloride IVPB 100 mls/hr Q6H MERRILL Administration Morphine Sulfate 4 mg 01/23/25 00:35 Morphine Sulfate (*Crx) 4 Mg/Ml Inj IV PUSH Q2H PRN Pain Rated 7-10 Ondansetron HCl 4 mg 01/23/25 00:35 Ondansetron Inj 4 Mg/2 Ml Vial IV PUSH Q4H PRN Nausea Rosuvastatin Calcium 5 mg 01/24/25 09:35 01/27/25 08:41 Rosuvastatin 5 Mg Tablet PO 5 mg DAILY MERRILL Administration Radiology Results: ITS Impressions Catheter Placement CT 01/23/25 12:25 IMPRESSION: 1. Successful CT-guided pelvic abscess drainage. 2. 25 mL fluid was sent for aerobic and anaerobic cultures. 3. The catheter will be managed by Dr. Vargas. Abdomen/Pelvis CT 01/27/25 08:31 IMPRESSION: 1. Percutaneous pigtail catheter in the mid pelvis with small amount of residual fluid; no new abscess seen. Small bowel findings likely associated with inflammatory/infectious process. 2. 2 cm air accumulation along the left anterolateral margin of small hiatal hernia does not appear to represent pneumoperitoneum and may represent small distal esophageal diverticulum.
--- NOTE | 2025-01-27 11:56 | P.DS_ITS ---
DS: Admitting Diagnosis Discharge Date 01/27/2025 Admitting Diagnosis abscess of sigmoid colon due to diverticulitis htn DS: Discharge Diagnosis Discharge Diagnosis (1) Abscess of sigmoid colon due to diverticulitis: Code(s): K57.20 - Diverticulitis of large intestine with perforation and abscess without bleeding Status: Acute (2) Essential (primary) hypertension: Code(s): I10 - Essential (primary) hypertension Status: Acute DS: Summary Hospital Course Reason for hospitalization: abscess of sigmoid colon due to diverticulitis htn Hospital Course: 59-year-old male with a history of hypertension who presented to the emergency department with lower abdominal pain, bloating, and nausea. Initial evaluation at an urgent care center included a CT scan, which revealed perforated sigmoid diverticulitis with a 5 x 4 cm adjacent abscess. On admission, he was hemodynamically stable, afebrile, and nontoxic, with mild leukocytosis (WBC 12,000) and unremarkable abdominal exam except for mild tenderness without peritoneal signs. He was started on intravenous piperacillin-tazobactam and received a 1L normal saline bolus. General surgery was consulted and patient underwent a CT-guided percutaneous drainage of the pelvic abscess with IR. The patient remained afebrile and clinically stable, with normalization of his WBC and improvement in abdominal symptoms. He tolerated advancement to a low-fiber diet without recurrence of pain, nausea, or vomiting. Output from the drain was minimal on day of discharge and repeat CT demonstrated the drain in good position with only a small residual fluid collection and no new abscess formation. The percutaneous drain was removed on the day of discharge by surgery. Blood cultures remained negative, and abscess cultures grew Staphylococcus aureus. He was transitioned to oral antibiotics at time of discharge per surgery. At time of discharge patient had no complaints denying chest pain, palpitations, shortness of breath, nausea/vomiting and abdominal pain. The patient was discharged in stable condition with family and is to follow up with his PCP in 1 week and surgery as scheduled. Status at Discharge Functional status at discharge: independent ambulation Time Spent with Patient Time attestation: Total time spent providing and/or coordinating discharge services: Time spent: Greater than 30 minutes Exam Narrative: AF HR 63 RR 16 SpO2 97 BP 122/71 General: male in no acute respiratory distress who is nontoxic appearing, sitting up on side of bed and ambulating in room HEENT: Normocephalic. Atraumatic. Extraocular movement intact. Sclera clear and anicteric. No facial asymmetry. Chest: Lungs are clear to auscultation bilaterally. No wheezes or crackles. CV: Heart was regular rate and rhythm. Abd: Abdomen was soft. Dressing clean/dry/intact over prior drain insertion site. Nondistended. Positive bowel sounds. Ext: No clubbing, cyanosis, or edema. DP pulses bilaterally. DS: Data Data Completed and Pending Completed studies during hospitalization: abdomen/pelvis ct catheter placement ct Labs on day of discharge: Preliminary micro results at discharge 01/22/25 21:46 Blood Culture - Preliminary Blood 01/22/25 21:46 Blood Culture - Preliminary Blood Discharge Plan Discharge Attending physician on discharge: Michael Bear Consulting providers: Marquez Saldaña; Milly Dow Discharging Clinician: Milly Dow Anticipated Discharge Date/Time: 01/27/25 11:52 Patient Disposition: Home Activity: as tolerated Diet: as tolerated and low fiber Discharge Instructions: Discharge disposition: Patient admitted with an abscess fo sigmoid colon Evaluated by surgery Keep dressing over drain site covered for at least 24 hours. May shower in 24-48 hours. Oral antibiotic prescription sent to your pharmacy. Please take these as prescribed. Augmentin and flagyl, attached is information on these medications Continue low fiber diet until follow up with surgery Call general surgery office at to schedule a follow up appointment with Dr. Saldaña. Call office or return to ED if you develop any new or worsening pain, bleeding, vomiting, or fevers. Monitor blood pressures Take caution while standing, rising, or moving Change positions slowly taking a break between each position change If you standing feel dizzy sit back down and take a break Encouraged to continue with yearly vaccinations Return to the emergency department if he developed sudden shortness of breath, chest pain, nausea, vomiting, upset stomach or intractable diarrhea Return to the emergency department if you develop fever greater than 100.5 Follow-up with the primary care physician within 1-2 weeks Thank you for choosing [facility] for your healthcare needs Patient Instructions: Antibiotic Form, Metronidazole (By mouth), Amoxicillin/Clavulanate Potassium (By mouth), Low Fiber Diet (DC) Patient Language: Belarusian Stand Alone Forms: General Discharge Information Follow-up/Referrals: AgustinCordell MD ([place]) [Primary Care Provider] - 1 Week Marquez Saldaña MD [Physician, General Surgery] - Call for Appointment Referral Note: 2 weeks Discharge Medications: New amoxicillin-pot clavulanate 875-125 mg tablet 1 tablet PO Q12H Qty: 24 0RF metronidazole 500 mg tablet 500 mg PO Q8H Qty: 42 0RF Continued multivitamin Tablet 1 tablet PO DAILY amlodipine 5 mg tablet 5 mg PO DAILY Qty: 90 1RF rosuvastatin [Crestor] 5 mg tablet 5 mg PO DAILY Qty: 90 1RF candesartan 32 mg tablet See Rx Instructions .ROUTE .COMPLEX Qty: 90 1RF Dose Instruction: TAKE 1 TABLET DAILY Rx Instructions: TAKE 1 TABLET DAILY Date of admission: 01/23/25 11:41 Primary Care Provider: OlegarioCordell) Admitting Provider: Sue Constantino Attending physician on admission: Sue Constantino Condition: Stable Hospitalist MIPS Heart Failure (Exclusion) Patient has history of Heart Transplant or Left Ventricular Assistive Device?: No IF YES, STOP HERE Heart Failure (Qualifier) Patient has current or prior documentation of LVEF less than or equal to 40%, or mod/servere depressed LVSF?: No IF NO, STOP HERE
== END 2025-01-27 12:35 | disposition home or self-care (01) | DRG 392 ==
LOC: ANHED 01-23 00:19 → ANH2MED 01-23 01:28
PROVIDERS: Nurse Practitioner; Radiology Diagnostic Radiology; Surgery; Admitting Provider General Practice; Emergency Provider Physician Assistant; PCP Internal Medicine; Visit Provider Student in an Organized Health Care Education/Training Program
PROC: 0W9J30Z Drainage of Pelvic Cavity with Drainage Device, Percutaneous Approach (ICD-10-PCS; CPT 75989; principal; 2025-01-23 11:00)
DX: K57.20 Diverticulitis of large intestine with perforation and abscess without bleeding (principal); I10 Essential (primary) hypertension; B95.61 Methicillin susceptible Staphylococcus aureus infection as the cause of diseases classified elsewhere
CPT/HCPCS: 36415; 49406; 74177; 80048; 80053; 81001; 83605; 83690; 83735; 84145; 85025; 85027; 85610; 87040; 87070; 87075; 87186; 87205; 96365; 96375; 99285; A9270; G0378; J1650; J2543; J3010; J7030; Q9967